=== PATIENT | male | born 1980 | race Hispanic/Latino ===

== ENCOUNTER → 2017-09-06 | Outpatient (CLI) | payer OTHER ==
--- NOTE | 2017-09-06 14:18 | REP ---
CT RIGHT ELBOW: CT right elbow performed without IV contrast in the axial plane. Sagittal and coronal reconstructed images are performed. There is no acute fracture or dislocation. Surrounding soft tissue structures appear unremarkable. There is no gross fluid collection or soft tissue nodule. There is mild spurring of the olecranon and coronoid process. The joint spaces appear unremarkable with no significant narrowing. No radiopaque joint body is seen. IMPRESSION: Mild olecranon and coronoid process spurring. Signed by Sreedhar Billingsley MD 09/09/2017 09:52 A
== END ==
LOC: M RAD 13:02
PROVIDERS: ATTEND Family Medicine
DX: M25.721 Osteophyte, right elbow (principal); M25.521 Pain in right elbow

== ENCOUNTER 2019-05-11 10:33 | Day surgery (SDC) | payer OTHER, MEDICAID ==
[~2019-05-11] VITALS: Ht 175.3 cm; Wt 100.7 kg
[~2019-05-11 10:33] MED LIST: BELS1TAB2 PO; CLON-383 PO; DEPA500T2 PO; DOXE150C PO; HYDR-3363 PO; HYDR-3719 PO; INSULANT SC; LANS15CA PO; MAGN400C3 PO; MAGN400T2 PO; MELA3TAB49 PO; METF500T13 PO; NS 1,000 ML IV ONE; PERCOCET PO; RIBO400T PO; VIIB40TA PO; VITA500045 PO
[2019-05-11] MEDS ORDERED: LIDOCAINE 2% INJ 100 MG/5 ML SDV (FOR ANES.) As Ordered ONE (11:37)
[2019-05-11] MEDS ORDERED: fentaNYL 100 MCG/2 ML INJECTION (J3010) As Ordered ONE (11:52)
[2019-05-11] MEDS ORDERED: PROPOFOL 500 MG/50 ML VIAL As Ordered ONE (11:59)
--- NOTE | 2019-05-11 12:42 | ROOR ---
Patient Name: Eusebio Renteria Procedure Date: 05/11/2019 12:23 PM Date of : 1980 Age: 38 [facility]: [facility] Gender: Male Note Status: Finalized Procedure: Upper Endoscopy + Biopsies Indications: Heartburn, Diarrhea Providers: Kvng Pabon MD Referring MD: [facility], Admin. Requesting Provider: Medicines: Monitored Anesthesia Care Complications: No immediate complications. Procedure: Pre-Anesthesia Assessment: - The heart rate, respiratory rate, oxygen saturations, blood pressure, adequacy of pulmonary ventilation, and response to care were monitored throughout the procedure. The Endoscope was introduced through the mouth, and advanced to the second part of duodenum. The upper GI endoscopy was accomplished without difficulty. The patient tolerated the procedure well. Findings: The Z-line was variable and was found 40 cm from the incisors. Multiple biopsies were obtained with cold forceps for evaluation to rule out Real's Esophagus randomly at the gastroesophageal junction. A small hiatal hernia was present. No other significant abnormalities were identified in a careful examination of the stomach. The exam of the duodenum was otherwise normal. Multiple biopsies were obtained with cold forceps for evaluation of celiac disease randomly in the first portion of the duodenum. The exam was otherwise without abnormality. Impression: - Z-line variable, 40 cm from the incisors. - Small hiatal hernia. - The examination was otherwise normal. - Multiple biopsies were obtained at the gastroesophageal junction. - Multiple biopsies were obtained in the first portion of the duodenum. - The examination was otherwise normal. Recommendation: - Patient has a contact number available for emergencies. The signs and symptoms of potential delayed complications were discussed with the patient. Return to normal activities tomorrow. Written discharge instructions were provided to the patient. - High fiber diet. - Discharge patient to home. - Continue present medications. - Await pathology results. - Telephone GI clinic for pathology results in 1 week. - Return to referring physician. - The findings and recommendations were discussed with the patient's family. Kvng Pabon MD Kvng Pabon MD 05/11/2019 12:42:01 PM Electronically signed by Kvng Pabon MD Number of Addenda: 0 Note Initiated On: 05/11/2019 12:23 PM Estimated Blood Loss: Estimated blood loss: none.
[2019-05-11] MEDS ORDERED: PROPOFOL 200 MG/20 ML VIAL As Ordered ONE (12:44)
--- NOTE | 2019-05-11 13:02 | ROOR ---
Patient Name: Eusebio Renteria Procedure Date: 05/11/2019 12:24 PM Date of : 1980 Age: 38 Room: [facility] Gender: Male Note Status: Finalized Procedure: Total Colonoscopy to Cecum + Ileoscopy + Bx. Indications: Clinically significant diarrhea of unexplained origin Providers: Kvng Pabon MD Referring MD: [facility] John [facility]ERT[facility], Admin. Requesting Provider: Medicines: Monitored Anesthesia Care Complications: No immediate complications. Procedure: Pre-Anesthesia Assessment: - The heart rate, respiratory rate, oxygen saturations, blood pressure, adequacy of pulmonary ventilation, and response to care were monitored throughout the procedure. The Colonoscope was introduced through the anus and advanced to the cecum, identified by appendiceal orifice and ileocecal valve. The colonoscopy was performed without difficulty. The patient tolerated the procedure well. The quality of the bowel preparation was excellent. Findings: The perianal and digital rectal examinations were normal. Non-bleeding internal hemorrhoids were found during retroflexion. The hemorrhoids were small and Grade I (internal hemorrhoids that do not prolapse). No other significant abnormalities were identified in a careful examination of the remainder of the colon. The terminal ileum appeared normal. Multiple biopsies were obtained with cold forceps for histology in the terminal ileum. Biopsies for histology were taken with a cold forceps from the ascending colon, transverse colon and sigmoid colon for evaluation of microscopic colitis. The exam was otherwise without abnormality. Impression: - Non-bleeding internal hemorrhoids. - The examined portion of the ileum was normal. - The examination was otherwise normal. - Biopsies performed in the terminal ileum. - Biopsies were taken with a cold forceps from the ascending colon, transverse colon and sigmoid colon for evaluation of microscopic colitis. - The exam was otherwise normal to the cecum. Recommendation: - Patient has a contact number available for emergencies. The signs and symptoms of potential delayed complications were discussed with the patient. Return to normal activities tomorrow. Written discharge instructions were provided to the patient. - High fiber diet. - Discharge patient to home. - Continue present medications. - Await pathology results. - Telephone GI clinic for pathology results in 1 week. - Repeat colonoscopy in 10 years for screening purposes. - Return to referring physician. - The findings and recommendations were discussed with the patient's family. Kvng aPbon MD Kvng Pabon MD 05/11/2019 1:02:09 PM Electronically signed by Kvng Pabon MD Number of Addenda: 0 Note Initiated On: 05/11/2019 12:24 PM Estimated Blood Loss: Estimated blood loss: none.
[2019-05-11 13:20] VITALS: BP 128/76
== END 2019-05-11 13:35 | disposition home or self-care (01) ==
LOC: M OPP 10:33
PROVIDERS: ATTEND Internal Medicine Gastroenterology
DX: K64.0 First degree hemorrhoids (principal); K22.8 Other specified diseases of esophagus; K44.9 Diaphragmatic hernia without obstruction or gangrene; R12 Heartburn; R19.7 Diarrhea, unspecified
CPT/HCPCS: 43239; 45380; 88305; J3010

== ENCOUNTER 2021-07-16 17:19 | Inpatient (IN) | payer OTHER, MEDICAID ==
[~2021-07-16] VITALS: Ht 175.3 cm; Wt 100.2 kg
[~2021-07-16 17:19] MED LIST changes: -NS 1,000 ML IV ONE
[2021-07-16] MEDS ORDERED: methylPREDNISolone 125MG 2ML VIAL IV ONE (17:50)
[2021-07-16] MEDS ORDERED: VERA40TA PO (17:53)
[2021-07-16] MEDS ORDERED: AZIT-12 (17:53)
[2021-07-16] MEDS ORDERED: BENZ-18 PO (17:53)
[2021-07-16] MEDS ORDERED: PRAZ2CAP PO (17:53)
[2021-07-16] MEDS ORDERED: IBUP-1114 PO (17:53)
[2021-07-16] MEDS: COMBIVENT RESPIMAT 100-20MCG INHALER 4GM INH SCH ×3 (18:10→23:05)
[2021-07-16 18:16] LABS: HEMATOCRIT 41.3 % (42.0-52.0); HEMOGLOBIN 13.9 g/dl (13.5-17.5); MEAN CORPUSCULAR HEMOGLOBIN 26.5 pg (27.0-33.0); MEAN CORPUSCULAR HGB CONC 33.7 g/dl (32.0-36.5); MEAN CORPUSCULAR VOLUME 78.7 fl (80.0-96.0); PLATELET COUNT, AUTOMATED 313 10^3/uL (150-450); RED BLOOD COUNT 5.25 10^6/uL (4.30-6.10); WHITE BLOOD COUNT 6.2 10^3/uL (4.0-10.0)
[2021-07-16] MEDS ORDERED: ACETAMINOPHEN 325 MG TAB PO ONE (18:25)
--- NOTE | 2021-07-16 18:29 | REP ---
INDICATION: Coronavirus workup COMPARISON: 06/25/2018 TECHNIQUE: Portable AP view of the chest FINDINGS: Predominantly perihilar and mid to lower lobe scattered infiltrates consistent with pneumonia and COVID-19 pulmonary disease. No effusion. No pneumothorax. Mediastinum and cardiac silhouette normal. Skeletal structures intact. IMPRESSION: Infiltrates compatible with multifocal pneumonia and COVID-19 pulmonary disease. <Electronically signed by Daquan Meraz > 07/16/21 [id number]
[2021-07-16] MEDS ORDERED: ESOM20CA25 PO (18:30)
[2021-07-16] MEDS ORDERED: HYDR-4571 PO (18:30)
[2021-07-16] MEDS ORDERED: METF-838 PO (18:30)
[2021-07-16] MEDS ORDERED: MORP-69 PO (18:30)
[2021-07-16] MEDS ORDERED: PIOG1TAB37 PO (18:30)
[2021-07-16] MEDS ORDERED: PRAV20TA2 PO (18:30)
[2021-07-16] MEDS ORDERED: B-2100TA PO (18:30)
[2021-07-16] MEDS ORDERED: CYCL5TAB PO (18:30)
[2021-07-16] MEDS ORDERED: ALOG25TA PO (18:30)
[2021-07-16] MEDS ORDERED: HYDR50TA70 PO (18:30)
[2021-07-16 18:31] LABS: INR 1.11; PROTHROMBIN TIME 14.7 SECONDS (12.7-14.5)
[2021-07-16 18:32] LABS: PARTIAL THROMBOPLASTIN TIME 35.9 SECONDS (25.9-37.0)
[2021-07-16 18:35] LABS: D-DIMER QUANT 863.82 ng/ml (<500)
[2021-07-16 18:47] LABS: ALBUMIN 2.8 GM/DL (3.2-5.2); ALT/SGPT 33 U/L (12-78); BILIRUBIN,TOTAL 0.9 MG/DL (0.2-1.0); BLOOD UREA NITROGEN 11 MG/DL (7-18); CALCIUM LEVEL 8.7 MG/DL (8.5-10.1); CARBON DIOXIDE LEVEL 23 MEQ/L (21-32); CHLORIDE LEVEL 95 MEQ/L (98-107); CK-MB VALUE MASS < 1.0 NG/ML (<3.6); CPK CREATINE PHOSPHOKINASE 102 U/L (39-308); CREATININE FOR GFR 0.98 MG/DL (0.70-1.30); FERRITIN 974 NG/ML (26-388); GLOMERULAR FILTRATION RATE > 60.0 (>60); GLUCOSE, FASTING 261 MG/DL (70-100); LDH LACTATE DEHYDROGENASE 392 U/L (87-241); MAGNESIUM LEVEL 2.3 MG/DL (1.8-2.4); MB/CK RELATIVE INDEX 0.98 (< OR =4); POTASSIUM SERUM 3.3 MEQ/L (3.5-5.1); SODIUM LEVEL 128 MEQ/L (136-145); TOTAL PROTEIN 8.6 GM/DL (6.4-8.2); TROPONIN I < 0.02 NG/ML (< 0.10)
[2021-07-16 18:52] LABS: LYMPHOCYTES 13 % (16-44); MONOCYTES 7 % (0-5); NEUTROPHILS 75 % (28-66)
[2021-07-16 18:54] LABS: MICROCYTOSIS 1+; PLATELET ESTIMATE NORMAL (NORMAL)
[2021-07-16] MEDS ORDERED: ERGO500029 PO (18:56)
[2021-07-16] MEDS ORDERED: BELS1TAB PO (18:56)
[2021-07-16] MEDS ORDERED: IBUP-1720 PO (18:56)
[2021-07-16] MEDS ORDERED: HOME MED LIST COMPLETE! XX SCH (19:00)
[2021-07-16] MEDS ORDERED: ISOVUE-370 76% 100ML VIAL As Ordered ONE ×2 (19:28→19:51)
--- NOTE | 2021-07-16 19:31 | ECGEPIP ---
[facility] - ED Test Date: 2021-07-16 Pat Name: CARITO MANLEY Department: Room: - Gender: Male Fall Intern: EVER : 1980 Requested By: Kannan Jiménez Order Number: [id number] Reading MD: Kannan Jiménez Measurements Intervals [place] Rate: 106 P: 34 NV: 152 QRS: 36 QRSD: 76 T: 46 QT: 334 QTc: 443 Interpretive Statements Sinus tachycardia Nonspecific ST T wave changes Baseline artifact may affect reading cw 06/25/[address] T wave changes Electronically Signed on 07-16-2021 19:31:22 EDT by Kannan Jiménez
--- NOTE | 2021-07-16 20:42 | REPVR ---
PROCEDURE INFORMATION: Exam: CTA Chest With Contrast Exam date and time: 07/16/2021 7:44 PM Age: 41 years old Clinical indication: Patient is COVID positive, R/O PE. Patient's IV blew without infiltrate and an unknown amount of contrast was injected and the patient was re-injected with 75 cc of Isovue 370. Creatinine = 0.98. TECHNIQUE: Imaging protocol: Computed tomographic angiography of the chest with contrast. 3D rendering (Not supervised by radiologist): MIP and/or 3D reconstructed images were created by the technologist. Radiation optimization: All CT scans at this facility use at least one of these dose optimization techniques: automated exposure control; mA and/or kV adjustment per patient size (includes targeted exams where dose is matched to clinical indication); or iterative reconstruction. Contrast material: ISOVUE 370; Contrast volume: 75 ml; Contrast route: INTRAVENOUS (IV); COMPARISON: CR PORTABLE CHEST X-RAY 07/16/2021 6:14 PM FINDINGS: Tubes, catheters and devices: There is a neurostimulator device in place with leads terminating in the posterior epidural space at the T6-T7 level. Pulmonary arteries: No pulmonary embolism. Aorta: The thoracic aorta is intact and patent. There is no thoracic aortic aneurysm, pseudoaneurysm, penetrating atherosclerotic ulcer, intramural hematoma, or dissection. Great vessels off aortic arch: The brachiocephalic artery, imaged proximal portions of the common carotid arteries, imaged proximal portions of the vertebral arteries, and subclavian arteries are intact. No stenosis or occlusion of these vessels is noted. Trachea: Normal. Bronchial tree: Normal. Lungs: There are ground-glass opacities in a predominantly peripheral distribution in both lungs with areas of intralobular septal thickening ("crazy-paving"?) and superimposed consolidation. Pleural spaces: Unremarkable. No pneumothorax. No pleural effusion. Heart: No cardiomegaly or pericardial effusion. The ratio of the diameter of the right ventricle to the diameter of the left ventricle measures less than 1, which is within normal limits and there is no CT evidence for a right ventricular strain. Mediastinal space: No mediastinal mass, fluid collection, or pneumomediastinum. Lymph nodes: There are subcentimeter mediastinal lymph nodes. However, no abnormally enlarged lymph nodes measuring greater than 1 cm in short axis are noted. Spleen: Normal. No splenomegaly is noted. Adrenal glands: Normal. No adrenal mass is noted. Bones/joints: There is no fracture or dislocation. No suspicious osteolytic or osteoblastic lesion. There are endplate spurs in the thoracic spine. Soft tissues: There is mild right gynecomastia. IMPRESSION: 1. No pulmonary embolism. 2. Ground-glass opacities in a predominantly peripheral distribution in both lungs with areas of intralobular septal thickening ("crazy-paving"?) and superimposed consolidation, which are findings in keeping with the patient's history of COVID positive pneumonia. Electronically signed by: Adolph Vences On 07/16/2021 20:41:57 PM
[2021-07-16] MEDS: PRAVASTATIN 10 MG TAB PO SCH (21:00)
[2021-07-16] MEDS: MORPHINE 15 MG SA TAB PO SCH (21:00)
[2021-07-16] MEDS: PRAZOSIN 1 MG CAP PO SCH (21:00)
[2021-07-16] MEDS ORDERED: NORCO, ANEXSIA 5/325MG TABLET (HYDROcodone/ACETAMINOPHEN) PO PRN (21:05)
[2021-07-16] MEDS ORDERED: GLUCAGON INJ 1MG VIAL SC PRN (21:05)
[2021-07-16] MEDS ORDERED: CYCLOBENZAPRINE 5MG TABLET PO PRN (21:05)
[2021-07-16] MEDS ORDERED: DEXTROSE 50% 50 ML SYRINGE IV PRN (21:05)
[2021-07-16] MEDS ORDERED: hydrOXYzine 50 MG TAB PO PRN (21:05)
[2021-07-16] MEDS ORDERED: NS 1,000 ML IV SCH (21:05)
[2021-07-16] MEDS ORDERED: BENZONATATE 100 MG CAP PO PRN (21:05)
[2021-07-16] MEDS ORDERED: GLUCOSE 4GM CHEW TABLET PO PRN (21:05)
--- NOTE | 2021-07-16 21:05 | HPEPDOC ---
[facility] Medical History & Physical Date of Admission Jul 16, 2021 Date of Service: Jul 16, 2021 History and Physical CHIEF COMPLAINT: Shortness of breath HISTORY OF PRESENT ILLNESS: 41-year-old male history of insulin-dependent diabetes, presents to the emergency department due to shortness of breath he's been measuring his oxygen saturation at home found himself to be 85% on room air. Patient had cold-like symptoms that started on July 06 symptoms have persisted and include muscle pains, headache, loss of taste and smell, cough with productive white phlegm, increased fatigue, fevers and chills, night sweats, he was diagnosed with Covid 19 on July 09 and the symptoms have persisted since then however over the past 3 days he also started developing some mild shortness of breath which was new. Patient tells me that his 2 kids are also Covid positive at home. He tells me he is not vaccinated. CT angiogram chest to rule out PE was ordered in the ED and is still pending. On review of systems patient denies any chest pain or palpitations or nausea or vomiting tells me is feeling better now shortness of breath has improved. Patient will be admitted to medical service for further medical workup and management. 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 REVIEW OF SYSTEMS: 10 point review of systems complete all negative otherwise stated in HPI HOME MEDICATIONS: Please see below. PHYSICAL EXAMINATION: Constitutional: Awake and alert, in no apparent distress ENT: Sclera are clear. Mucosa is moist. Respiratory: Lungs diminished breath sounds bilaterally. No respiratory distress. No use of accessory muscles. Saturating at 95% on 4 L. Able to speak in full sentences without appearing short of breath during exam and history taking. Cardiovascular: RRR S1 and S2 are normal, no murmur Gastrointestinal: Abdomen is soft, non distended, non tender, BS present. Musculoskeletal: No lower extremity edema. Neurologic: No focal neurological deficit. Mental Status: A&O x3, normal affect Skin: Warm, dry LABORATORY DATA: See below. IMAGING: See chart MICROBIOLOGY: Please see below. ASSESSMENT/PLAN # Hypoxic respiratory failure 2/2 Covid 19 infection with possible superimposed bacterial pneumonia: - Has multiple risk factors for poor outcomes with Covid 19 infection such as obesity, and diabetes. - Initial inflammatory markers elevated. Trend inflammatory markers. - IV Decadron daily. Day 10 of symptoms, will start rimdasivir. Lovenox. O2 target 90% or better. PT/OT. - Started IV ceftriaxone and azithromycin. Follow blood cultures. follow-up pro- calcitonin if negative can consider DC Abx. # DM: ISS. Frequent Accu-Cheks. Hypoglycemic precautions. levemir qhs. # Hypokalemia: Replace. Monitor. # Hyponatremia: trial IVF with NS. # Obesity: complicates care. BMI 34. # DVT prophylaxis: Lovenox COVID prophylactic dose A Yousef Hospitalist Vital Signs Vital Signs Date Time Temp Pulse Resp B/P (MAP) Pulse Ox O2 Delivery O2 Flow Rate FiO2 07/16/21 18:45 20 138/91 (107) 07/16/21 18:34 102 95 Nasal Cannula 4.0 07/16/21 17:48 100.6 Laboratory Data Labs 24H Laboratory Tests 2 07/16/21 17:52: Neutrophils (%) (Auto) , Nucleated Red Blood Cells % (auto) 0.0, Neutrophils 75H, Band Neutrophils 5, Lymphocytes (Manual) 13L, Monocytes (Manual) 7H, Polychromasia , Microcytosis 1+, Platelet Estimate NORMAL, Prothrombin Time 14.7H, Prothromb Time International Ratio 1.11, Activated Partial Thromboplast Time 35.9, Fibrinogen 852H, D-Dimer, Quantitative 863.82H, Anion Gap 10, Glomerular Filtration Rate > 60.0, Lactic Acid Level 1.6, Calcium Level 8.7, Magnesium Level 2.3, Ferritin 974H, Total Bilirubin 0.9, Aspartate Amino Transf (AST/SGOT) 30, Alanine Aminotransferase (ALT/SGPT) 33, Alkaline Phosphatase 76, Lactate Dehydrogenase 392H, Total Creatine Kinase 102, Creatine Kinase MB < 1.0, Creatine Kinase MB Relative Index 0.98, Troponin I < 0.02, C-Reactive Protein, Quantitative 28.50H, Total Protein 8.6H, Albumin 2.8L, Albumin/Globulin Ratio 0.5 07/16/21 18:04: POC pH (Misc Panel) 7.421, POC Base Excess (Misc Panel) -2.0, POC Saturated Percent O2 (Misc) 96, POC pO2 (Misc Panel) 76.0L, POC pCO2 (Misc Panel) 34.9L, POC HCO3 (Misc Panel) 22.7, POC Total CO2 (Misc Panel) 24.0 CBC/BMP Laboratory Tests 07/16/21 17:52 Microbiology Microbiology 07/16/21 Blood Culture, Received Pending Home Medications Scheduled Alogliptin Benzoate (Alogliptin) 25 Mg Tablet, 25 MG PO DAILY Ergocalciferol (Vitamin D2) (Vitamin D2) 50,000 Units Cap, 50,000 UNITS PO 1XWK WEDNESDAYS Esomeprazole Magnesium (Esomeprazole Magnesium Dr) 20 Mg Capsule.dr, 20 MG PO BID Insulin Glargine (Lantus) 1 Units/0.01 Ml Susp, 30 UNITS SC QHS Magnesium Oxide (Magnesium Oxide) 400 Mg Tablet, 400 MG PO DAILY Melatonin (Melatonin) 3 Mg Tab.rapdis, 3 MG PO QHS Metformin HCl (Metformin HCl ER) 500 Mg Tab.er.24h, 2,000 MG PO QHS Morphine Sulfate (Morphine Sulfate ER) 15 Mg Tablet.er, 15 MG PO BID Pioglitazone HCl (Pioglitazone HCl) 30 Mg Tablet, 30 MG PO DAILY Pravastatin Sodium (Pravastatin Sodium) 20 Mg Tablet, 10 MG PO QHS Prazosin Hcl (Prazosin HCl) 2 Mg Capsule, 4 MG PO QHS Riboflavin (Vitamin B2) (Vitamin B-2) 100 Mg Tablet, 400 MG PO DAILY Verapamil HCl (Verapamil HCl) 40 Mg Tablet, 40 MG PO TID Vilazodone HCl (Viibryd) 40 Mg Tablet, 40 MG PO QHS Scheduled PRN Benzonatate (Benzonatate) 100 Mg Capsule, 100 MG PO Q4H PRN for COUGH Cyclobenzaprine HCl (Cyclobenzaprine HCl) 5 Mg Tablet, 5 MG PO TID PRN for MUSCLE SPASMS Hydrocodone/Acetaminophen (Hydrocodone-Acetamin 5-325 mg) 1 Each Tablet, 1 TAB PO Q4H PRN for PAIN LEVEL 4-7 Hydroxyzine HCl (Hydroxyzine HCl) 50 Mg Tablet, 50 MG PO Q6H PRN for ANXIETY Ibuprofen (Ibuprofen) 200 Mg Tablet, 400 MG PO Q8H PRN for PAIN LEVEL 1-5 Suvorexant (Belsomra) 5 Mg Tablet, 15 MG PO QHS PRN for SLEEP Allergies Coded Allergies: morphine (Verified Adverse Reaction, Intermediate, vomiting, 05/04/19) ziprasidone (Verified Adverse Reaction, Intermediate, extreme fatigue, 05/04/19) YOVANA MONDRAGON MD Jul 16, 2021 19:59
[2021-07-16] MEDS ORDERED: POTASSIUM CHLORIDE 10 MEQ SR TABLET PO ONE (22:00)
[2021-07-16 22:30] VITALS: BP 121/83
[2021-07-16] MEDS ORDERED: REMDESIVIR 200 MG in NS 250 ML IV ONE (23:00)
[2021-07-16] MEDS: ENOXAPARIN 60MG/0.6ML SYRINGE (J1650 PER 10MG) SC SCH (23:03)
[2021-07-16] MEDS: cefTRIAXone SOD 1 GM in D5W MINI-BAG PLUS 50 ML IV SCH (23:03)
[2021-07-16] MEDS: VERAPAMIL 40 MG TAB PO SCH (23:04)
[2021-07-16] MEDS: AZITHROMYCIN INJ 500 MG, VIAL MATE ADAPTER 1 EACH in NS 250 ML IV SCH (23:51)
[2021-07-16] MEDS: LEVEMIR (INSULIN DETEMIR) 1 UNITS/0.01ML SC SCH (23:51)
[2021-07-17] VITALS (15 sets, daily range): BP systolic 116–135; BP diastolic 72–88; O2SAT 90–92
[2021-07-17] MEDS ORDERED: SODIUM CHLORIDE 0.9% INJ 10 ML SYR IV ONE (01:00)
[2021-07-17] MEDS: MORPHINE 15 MG SA TAB PO SCH ×2 (08:20→20:24)
[2021-07-17] MEDS: MAGNESIUM OXIDE 400MG TAB (MAG-OX) PO SCH (08:21)
[2021-07-17] MEDS: dexameTHASONE 4 MG/ML 1ML VIAL (J1100 PER 1MG) IV SCH (08:22)
[2021-07-17] MEDS: VERAPAMIL 40 MG TAB PO SCH ×3 (08:22→21:00)
[2021-07-17] MEDS: ENOXAPARIN 60MG/0.6ML SYRINGE (J1650 PER 10MG) SC SCH ×2 (08:23→20:25)
[2021-07-17] MEDS: HumaLOG INSULIN (NovoLOG) PER UNIT SC SCH ×4 (08:35→20:25)
[2021-07-17 10:48] LABS: BASO % 0.3 % (0.0-1.0); HEMATOCRIT 38.1 % (42.0-52.0); LYMPH # 0.6 10^3/uL (1.5-5.0); LYMPH % 9.4 % (24.0-44.0); MEAN CORPUSCULAR HEMOGLOBIN 26.6 pg (27.0-33.0); MEAN CORPUSCULAR HGB CONC 34.1 g/dl (32.0-36.5); MEAN CORPUSCULAR VOLUME 77.9 fl (80.0-96.0); MONO # 0.2 10^3/uL (0.0-0.8); MONO % 3.6 % (2.0-8.0); NEUTROPHILS # 5.1 10^3/uL (1.5-8.5); NEUTROPHILS % 86.2 % (36.0-66.0); PLATELET COUNT, AUTOMATED 333 10^3/uL (150-450); RED BLOOD COUNT 4.89 10^6/uL (4.30-6.10); WHITE BLOOD COUNT 5.9 10^3/uL (4.0-10.0)
[2021-07-17 11:30] LABS: OSMOLALITY SERUM 287 MOSM/KG (275-295)
[2021-07-17 11:44] LABS: BLOOD UREA NITROGEN 15 MG/DL (7-18); CALCIUM LEVEL 8.3 MG/DL (8.5-10.1); CARBON DIOXIDE LEVEL 23 MEQ/L (21-32); CHLORIDE LEVEL 100 MEQ/L (98-107); CREATININE FOR GFR 0.73 MG/DL (0.70-1.30); FREE T4 1.81 NG/DL (0.76-1.46); GLOMERULAR FILTRATION RATE > 60.0 (>60); GLUCOSE, FASTING 241 MG/DL (70-100); MAGNESIUM LEVEL 2.4 MG/DL (1.8-2.4); POTASSIUM SERUM 4.4 MEQ/L (3.5-5.1); SODIUM LEVEL 134 MEQ/L (136-145); TOTAL T3 39.3 NG/DL (60.0-181.0)
--- NOTE | 2021-07-17 14:59 | IPNPDOC ---
Text Note Date of Service The patient was seen on 07/17/21. NOTE Subjective: Patient is a 41 yo male admitted overnight for worsening respiratory status from COVID pneumonia diagnosed on 07/09. He is seen this morning at bedside in the ICU due to lack of staffing in the COVID unit. He states he feels overall better compared to yesterday. He continues to have fatigue, myalgias, and a cough productive of white sputum, but otherwise denies any chest pain, palpitations, now denies SOB, denies nausea, vomiting, or abdominal pain. Objective: Vitals: See below General: Mildly diaphoretic appearing male who appears stated age laying in bed in no acute distress HEENT: NC, AT. EOMI, no scleral icterus. No pharyngeal erythema, mucous membrane s moist. Neck: No lymphadenopathy or JVD CV: RRR, Normal S1 and S2. No murmurs, gallops, or rubs. Resp: CTAB with diminished breath sounds. No wheezes, crackles. Some rhonchi present throughout lung haro. Abdomen: Bowel sounds present. Soft, NT, ND. Obese abdomen. Extremities: No swelling or edema. Vascular: Capillary refill <2 seconds, distal pulses intact Psych: A/Ox3 normal mood and anxious affect Assessment/Plan: #. Acute hypoxic respiratory failure likely secondary to COVID-19 pneumonia -Reported no vaccination -COVID+ on 07/09, day 9 of illness. Currently on 6 L nasal cannula -Remdesivir started 07/16 with possible stop date of 07/21 -IV Decadron started 07/16, with plans for 10 day course. -Incentive spirometry/acapella/awake pronation encouraged #. Possible superimposed pneumonia -CTA chest showing consolidations -07/16 Rocephin and azithromycin started - Pro stephenie, urine legionella, Mycoplasma, Urine strep pending #. Hyponatremia -From history this seems 2/2 poor PO intake. -Na now 134 after IVF overnight #.T2DM -Sliding scale insulin -Levemir 30 U QHS #. BERTO -Attempting to get home settings, he also has a 5L O2 bleed at night #. Hx of chronic back pain -Continue home Ms Contin 15 mg BID #. PTSD -Continue home Prazosin -If anxiety worsens may consider re-adding home atarax or vilazodone #. HTN -Continue home Verapamil #.Dyslipidemia -Continue home pravastatin #. Obesity Complicating care. BMI 34 #. DVT prophylaxis: prophylactic 0.5mg/kg dose CODE STATUS: Full code Disposition: Pending clinical improvement VS,Terabone, I+O VS, Terabone, I+O Laboratory Tests 07/16/21 17:52 07/17/21 10:32 Vital Signs Date Time Temp Pulse Resp B/P (MAP) Pulse Ox O2 Delivery O2 Flow Rate FiO2 07/17/21 08:22 104 119/79 07/17/21 08:20 21 07/17/21 08:14 97.1 88 Nasal Cannula 4.0 I&O- Last 24 Hours up to 6 AM 07/17/21 05:59 Intake Total 1735 ml Output Total 500 ml Balance 1235 ml GME ATTESTATION GME ATTESTATION My faculty preceptor for this patient encounter was physically present during the encounter and was fully available. All aspects of the patient interview, examination, medical decision making process, and medical care plan development were reviewed and approved by the faculty preceptor. The faculty preceptor is aware and concurs with the plan as stated in the body of this note and will attest to such by his/her cosignature. ATTENDING NOTE I, Shanna Leonard, have independently examined this patient and performed my own physical exam, as well as reviewed the documentation and edited where necessary. I have discussed in detail with the resident / student the findings and plan of treatment as documented by the resident / student and edited their note. I agree with their findings and treatment plan and have edited their documentation. I will continue to follow the patient during this hospital stay. GRACE MULLER DO Jul 17, 2021 14:11 SHANNA LEONARD MD Jul 17, 2021 15:27
[2021-07-17] MEDS: PRAZOSIN 1 MG CAP PO SCH (20:23)
[2021-07-17] MEDS: PRAVASTATIN 10 MG TAB PO SCH (20:24)
[2021-07-17] MEDS: cefTRIAXone SOD 1 GM in D5W MINI-BAG PLUS 50 ML IV SCH (20:26)
[2021-07-17] MEDS: LEVEMIR (INSULIN DETEMIR) 1 UNITS/0.01ML SC SCH (21:17)
[2021-07-17] MEDS: AZITHROMYCIN INJ 500 MG, VIAL MATE ADAPTER 1 EACH in NS 250 ML IV SCH (21:18)
[2021-07-17] MEDS: REMDESIVIR 100 MG in NS 250 ML IV SCH (22:27)
[2021-07-17] MEDS: SODIUM CHLORIDE 0.9% INJ 10 ML SYR IV SCH (23:33)
[2021-07-18] VITALS (12 sets, daily range): BP systolic 110–132; BP diastolic 62–88; O2SAT 90–93
[2021-07-18 04:51] LABS: HEMATOCRIT 34.6 % (42.0-52.0); HEMOGLOBIN 11.8 g/dl (13.5-17.5); MEAN CORPUSCULAR HEMOGLOBIN 26.7 pg (27.0-33.0); MEAN CORPUSCULAR HGB CONC 34.1 g/dl (32.0-36.5); MEAN CORPUSCULAR VOLUME 78.3 fl (80.0-96.0); PLATELET COUNT, AUTOMATED 347 10^3/uL (150-450); RED BLOOD COUNT 4.42 10^6/uL (4.30-6.10); WHITE BLOOD COUNT 3.8 10^3/uL (4.0-10.0)
[2021-07-18 05:01] LABS: INR 1.17; PROTHROMBIN TIME 15.3 SECONDS (12.7-14.5)
[2021-07-18 05:17] LABS: ATYPICAL LYMPH 2 % (0-5); LYMPHOCYTES 17 % (16-44); METAMYELOCYTES 1 % (0-0); MICROCYTOSIS 1+; MONOCYTES 7 % (0-5); NEUTROPHILS 73 % (28-66); PLATELET ESTIMATE NORMAL (NORMAL)
[2021-07-18 05:19] LABS: ALBUMIN 2.3 GM/DL (3.2-5.2); ALT/SGPT 47 U/L (12-78); BILIRUBIN,DIRECT 0.2 MG/DL (0.0-0.2); BILIRUBIN,TOTAL 0.4 MG/DL (0.2-1.0); BLOOD UREA NITROGEN 19 MG/DL (7-18); CALCIUM LEVEL 8.5 MG/DL (8.5-10.1); CARBON DIOXIDE LEVEL 24 MEQ/L (21-32); CHLORIDE LEVEL 101 MEQ/L (98-107); CPK CREATINE PHOSPHOKINASE 57 U/L (39-308); CREATININE FOR GFR 0.74 MG/DL (0.70-1.30); FERRITIN 1006 NG/ML (26-388); GLOMERULAR FILTRATION RATE > 60.0 (>60); GLUCOSE, FASTING 280 MG/DL (70-100); LDH LACTATE DEHYDROGENASE 347 U/L (87-241); MAGNESIUM LEVEL 2.4 MG/DL (1.8-2.4); NT-PRO BNP 24 PG/ML (<125); POTASSIUM SERUM 3.9 MEQ/L (3.5-5.1); SODIUM LEVEL 133 MEQ/L (136-145); TOTAL PROTEIN 7.2 GM/DL (6.4-8.2); TROPONIN I < 0.02 NG/ML (< 0.10)
[2021-07-18] MEDS: HumaLOG INSULIN (NovoLOG) PER UNIT SC SCH ×4 (08:15→20:50)
[2021-07-18] MEDS: MAGNESIUM OXIDE 400MG TAB (MAG-OX) PO SCH (08:52)
[2021-07-18] MEDS: MORPHINE 15 MG SA TAB PO SCH ×2 (08:53→20:49)
[2021-07-18] MEDS: dexameTHASONE 4 MG/ML 1ML VIAL (J1100 PER 1MG) IV SCH (08:54)
[2021-07-18] MEDS: ENOXAPARIN 60MG/0.6ML SYRINGE (J1650 PER 10MG) SC SCH ×2 (08:55→20:49)
[2021-07-18] MEDS: VERAPAMIL 40 MG TAB PO SCH ×3 (08:57→20:46)
[2021-07-18] MEDS ORDERED: DOCUSATE SODIUM 100MG CAPSULE PO PRN (09:20)
--- NOTE | 2021-07-18 13:44 | IPNPDOC ---
Text Note Date of Service The patient was seen on 07/18/21. NOTE Subjective: Patient is a 41 yo male admitted with respiratory failure from COVID pneumonia on 07/16. He is seen this morning at bedside in the ICU again. He was started on his home CPAP yesterday and kept that way overnight without issue. He has no complaints today outside of his ongoing cough productive of white phlegm and some chest pain that accompanies the cough. He also admits to fatigue and myalgias. He otherwise denies any fever, chills, chest pressure, palpitations, shortness of breath, nausea, vomiting, or abdominal pain. He has yet to have a bowel movement per nursing staff. Objective: Vitals: See below General: Laying supine in bed with CPAP applied to face in no acute distress HEENT: NC, AT. EOMI, no scleral icterus. Neck: No lymphadenopathy or JVD CV: RRR, Normal S1 and S2. No murmurs, gallops, or rubs. Resp: CTAB with diminished breath sounds. No wheezes, crackles. Some rhonchi and crackles present throughout lung haro. Abdomen: Bowel sounds present. Soft, NT, ND. Obese abdomen. Extremities: No swelling or edema. Vascular: Capillary refill <2 seconds, distal pulses intact Psych: A/Ox3 normal mood and anxious affect Assessment/Plan: #. Acute hypoxic respiratory failure likely secondary to COVID-19 pneumonia -Reported no vaccination -COVID+ on 07/09, day 10 of illness. Currently on home CPAP settings -Remdesivir started 07/16 with possible stop date of 07/21 -IV Decadron started 07/16, with plans for 10 day course. -Incentive spirometry/acapella/awake pronation encouraged #. Superimposed pneumonia - CTA chest showing consolidations - 07/16 Rocephin and azithromycin started for CAP and atypical coverage, may consider changing to doxy. - Pro-stephenie, urine legionella, Mycoplasma, Urine strep pending, sputum culture pending #. Hyponatremia -From history this seems 2/2 poor PO intake. -Still awaiting urine, serum osmolality, urine sodium, will continue to monitor, IVF have been stopped #.T2DM -Sliding scale insulin -Increasing long acting levemir to 50 U QHS -Consistent carb diet #. BERTO -Home settings are alternating CPAP pressures between 15-21 w/ 5L O2 bleed -Respiratory has recommended 17 cm H2) w/ bleed in for O2<88% QHS #. Hx of chronic back pain -Continue home Ms Contin 15 mg BID #. PTSD -Continue home Prazosin -If anxiety worsens may consider re-adding home atarax or vilazodone #. HTN -Continue home Verapamil #.Dyslipidemia -Continue home pravastatin #. Obesity Complicating care. BMI 34 #. DVT prophylaxis: prophylactic 0.5mg/kg dose CODE STATUS: Full code Disposition: Pending clinical improvement VS,Fishbone, I+O VS, Fishbone, I+O Laboratory Tests 07/18/21 04:40 Vital Signs Date Time Temp Pulse Resp B/P (MAP) Pulse Ox O2 Delivery O2 Flow Rate FiO2 07/18/21 12:00 91 NIPPV (BIPAP/CPAP) 10.0 07/18/21 12:00 98.0 80 28 116/75 (89) I&O- Last 24 Hours up to 6 AM 07/18/21 05:59 Intake Total 3845 ml Output Total 2475 ml Balance 1370 ml GME ATTESTATION GME ATTESTATION My faculty preceptor for this patient encounter was physically present during the encounter and was fully available. All aspects of the patient interview, examination, medical decision making process, and medical care plan development were reviewed and approved by the faculty preceptor. The faculty preceptor is aware and concurs with the plan as stated in the body of this note and will attest to such by his/her cosignature. ATTENDING NOTE Attending Attestation: I saw and evaluated the patient. I agree with the finding and the plan of care as documented in the residents note. GRACE MULLER DO Jul 18, 2021 13:44 FARIDEH LINCOLN MD Jul 19, 2021 06:16
[2021-07-18] MEDS: PRAVASTATIN 10 MG TAB PO SCH (20:48)
[2021-07-18] MEDS: PRAZOSIN 1 MG CAP PO SCH (20:48)
[2021-07-18] MEDS: cefTRIAXone SOD 1 GM in D5W MINI-BAG PLUS 50 ML IV SCH (20:49)
[2021-07-18] MEDS ORDERED: LEVEMIR (INSULIN DETEMIR) 1 UNITS/0.01ML SC SCH (21:00)
[2021-07-18] MEDS: AZITHROMYCIN INJ 500 MG, VIAL MATE ADAPTER 1 EACH in NS 250 ML IV SCH (21:44)
[2021-07-18] MEDS: REMDESIVIR 100 MG in NS 250 ML IV SCH (23:22)
[2021-07-19] VITALS (15 sets, daily range): BP systolic 100–129; BP diastolic 64–84; O2SAT 87–95
[2021-07-19] MEDS: SODIUM CHLORIDE 0.9% INJ 10 ML SYR IV SCH (00:51)
[2021-07-19 05:01] LABS: HEMATOCRIT 35.6 % (42.0-52.0); MEAN CORPUSCULAR HEMOGLOBIN 26.4 pg (27.0-33.0); MEAN CORPUSCULAR HGB CONC 33.7 g/dl (32.0-36.5); MEAN CORPUSCULAR VOLUME 78.4 fl (80.0-96.0); PLATELET COUNT, AUTOMATED 430 10^3/uL (150-450); RED BLOOD COUNT 4.54 10^6/uL (4.30-6.10); WHITE BLOOD COUNT 5.2 10^3/uL (4.0-10.0)
[2021-07-19 05:25] LABS: ALBUMIN 2.2 GM/DL (3.2-5.2); ALT/SGPT 50 U/L (12-78); BILIRUBIN,TOTAL 0.3 MG/DL (0.2-1.0); BLOOD UREA NITROGEN 20 MG/DL (7-18); CALCIUM LEVEL 8.6 MG/DL (8.5-10.1); CARBON DIOXIDE LEVEL 26 MEQ/L (21-32); CHLORIDE LEVEL 103 MEQ/L (98-107); CREATININE FOR GFR 0.73 MG/DL (0.70-1.30); GLOMERULAR FILTRATION RATE > 60.0 (>60); GLUCOSE, FASTING 259 MG/DL (70-100); POTASSIUM SERUM 4.1 MEQ/L (3.5-5.1); SODIUM LEVEL 134 MEQ/L (136-145); TOTAL PROTEIN 6.8 GM/DL (6.4-8.2)
[2021-07-19] MEDS: HumaLOG INSULIN (NovoLOG) PER UNIT SC SCH ×4 (06:59→20:38)
[2021-07-19] MEDS: ENOXAPARIN 60MG/0.6ML SYRINGE (J1650 PER 10MG) SC SCH ×2 (08:11→20:34)
[2021-07-19] MEDS: dexameTHASONE 4 MG/ML 1ML VIAL (J1100 PER 1MG) IV SCH (08:11)
[2021-07-19] MEDS: MAGNESIUM OXIDE 400MG TAB (MAG-OX) PO SCH (08:12)
[2021-07-19] MEDS: VERAPAMIL 40 MG TAB PO SCH (08:12)
[2021-07-19] MEDS: MORPHINE 15 MG SA TAB PO SCH ×2 (08:13→20:35)
[2021-07-19 09:27] LABS: ABG HCO3 24.2 MEQ/L (22.0-26.0); ABG PARTIAL PRESSURE CO2 33.8 mmHg (35.0-45.0); ABG PARTIAL PRESSURE O2 50.9 mmHg (75.0-100.0); ABG STANDARD HCO3 25.2 MEQ/L (22.0-26.0); ABG TOTAL CO2 25.2 MEQ/L (22.0-29.0); ABG pH (ARTERIAL) 7.472 UNITS (7.350-7.450)
[2021-07-19] MEDS ORDERED: dexameTHASONE 4 MG/ML 1ML VIAL (J1100 PER 1MG) IV ONE (10:45)
[2021-07-19] MEDS ORDERED: DOXYCYCLINE HYCLATE 100 MG in D5W MINI-BAG PLUS 100 ML IV SCH (11:00)
[2021-07-19] MEDS: BARICITINIB 2MG TABLET (OLUMIANT) FOR EUA PO SCH (11:17)
--- NOTE | 2021-07-19 13:42 | REP ---
INDICATION: hypoxia. COMPARISON: 07/16/2021. TECHNIQUE: Single portable AP view of the chest was performed. FINDINGS: Bilateral infiltrates are again present, unchanged on the right and mildly increased on the left. The heart and mediastinum are unchanged. Dorsal column stimulator leads are again noted. IMPRESSION: Stable right lung infiltrates. Mild increased left lung infiltrates. <Electronically signed by Sreedhar Billingsley > 07/19/21 [id number]
[2021-07-19 14:42] LABS: ABG BASE EXCESS -0.8 (-2.0-2.0); ABG HCO3 22.7 MEQ/L (22.0-26.0); ABG O2 SATURATION 96.8 % (95.0-99.0); ABG PARTIAL PRESSURE CO2 34.2 mmHg (35.0-45.0); ABG STANDARD HCO3 23.8 MEQ/L (22.0-26.0); ABG TOTAL CO2 23.8 MEQ/L (22.0-29.0)
--- NOTE | 2021-07-19 15:19 | IPNPDOC ---
Text Note Date of Service The patient was seen on 07/19/21. NOTE Subjective: Patient is seen this morning at bedside in the ICU. He has no new complaints to offer at this time, he denies any dyspnea, chest pain or pressure, abdominal pain, nausea, vomiting, difficulty urinating, he admits to constipation. He is tolerating a regular diet adequately and his appetite has improved. However, his oxygen demands are increasing and he is not maintaining well on his current CPAP settings of 17 even with the maximum 15% O2 Leak and keeps desaturating back down to the mid to low 80's. Objective: Vitals: See below General: Sitting upright in bed with CPAP applied to face in no acute distress HEENT: NC, AT. EOMI, no scleral icterus. mucous membranes moist. Neck: No lymphadenopathy or JVD CV: RRR, Normal S1 and S2. No murmurs, gallops, or rubs. Resp: CTAB with diminished breath sounds. Mild crackles at lung bases and rhonchi present throughout. Difficult to percuss with noise from CPAP machine. Abdomen: Bowel sounds present. Soft, NT, ND. Obese abdomen. Extremities: No swelling or edema. Vascular: Capillary refill <2 seconds, distal pulses intact Neurologic: CN 2-12 intact. Moving all 4 extremities, sensation intact in all 4 extremities. A/Ox4 Psych: Nnormal mood and affect Imagin07/16/2021 chest x-ray: "Impression: Infiltrates compatible with multifocal pneumonia and COVID-19 pulmonary disease" 07/16/2021 CT angiogram chest: "Impression: 1. No pulmonary embolism. 2. Ground glass opacities in a predominantly peripheral distribution in both lungs with areas of intralobular septal thickening ("crazy paving"?) And superimposed consolidation, which are findings in keeping with the patient's history of Covid positive pneumonia" 07/19/2021 chest x-ray: "Impression: Stable right lung infiltrates. Mild increased left lung infiltrates." Assessment/Plan: #. Acute hypoxic respiratory failure likely secondary to COVID-19 pneumonia -Worsened today, ABG showing 7.47/33.8/50.9. -Maxed out CPAP, vapotherm tried/failed. -Discussed case with Dr. Lowe who recommended Baricitinib w/ remdesivir, increased steroids, and Bipap pressure setting 20/16 @100% with TV goals of 450- 500. Failing this, COVID intubation team will need to be alerted. -COVID+ on 07/09, day 11 of illness. Unvaccinated. -Remdesivir started 07/16 will continue for 10 days, stop date 07/26 in conjunction w/ baricitinib -IV Decadron started 07/16, increasing to 12 mg IV daily, with plans for 10 day course. -Incentive spirometry/acapella/awake pronation encouraged #. Superimposed pneumonia - CTA chest showing consolidations - repeat chest x-ray showing worsened left lower lobe infiltrates and stable right lower lobe infiltrate - 07/16 Rocephin started for CAP, continuing -07/16 azithromycin started for atypical coverage, changing to doxycycline for same today - Pro-stephenie trending down -urine legionella, Mycoplasma, Urine strep pending, sputum culture pending #. Hyponatremia -Na levels stable at 134 -From history this seems 2/2 poor PO intake. -UA, urine sodium and urine osmolality and serum osmolality consistent with poor oral intake. #.T2DM -Sliding scale insulin -Changing Levemir to 35 units twice daily -Consistent carb diet #. BERTO -Home settings are alternating CPAP pressures between 15-21 w/ 5L O2 bleed -Respiratory has recommended 17 cm H2) w/ bleed in for O2<88% QHS #. Hx of chronic back pain -Continue home Ms Contin 15 mg BID #. PTSD -Continue home Prazosin -If anxiety worsens may consider re-adding home atarax or vilazodone #. HTN -Will hold for 24 hours, BP borderline soft and we may consider gentle diuresis given he is already +3 liters #.Dyslipidemia -Continue home pravastatin #. Obesity Complicating care. BMI 34 #. DVT prophylaxis: prophylactic 0.5mg/kg dose CODE STATUS: Was again clarified with patient in front of [employer] and RT. Patient wishes to remain FULL CODE. In the event he requires a trach and peg, he also wants that as well. Disposition: Pending clinical improvement VS,Fishbone, I+O VS, Fishbone, I+O Laboratory Tests 07/19/21 04:45 Vital Signs Date Time Temp Pulse Resp B/P (MAP) Pulse Ox O2 Delivery O2 Flow Rate FiO2 07/19/21 13:15 30 96 NIPPV (BIPAP/CPAP) 90 07/19/21 13:06 68 118/78 (91) 07/19/21 13:00 40.0 07/19/21 08:00 97.2 I&O- Last 24 Hours up to 6 AM 07/19/21 05:59 Intake Total 1805 ml Output Total 1850 ml Balance -45 ml GME ATTESTATION GME ATTESTATION My faculty preceptor for this patient encounter was physically present during the encounter and was fully available. All aspects of the patient interview, examination, medical decision making process, and medical care plan development were reviewed and approved by the faculty preceptor. The faculty preceptor is aware and concurs with the plan as stated in the body of this note and will attest to such by his/her cosignature. ATTENDING NOTE Attending Attestation: I saw and evaluated the patient. I agree with the finding and the plan of care as documented in the residents note. Discussed with pulmonary, assistance greatly appreciated. GRACE MULLER DO Jul 19, 2021 15:19 FARIDEH LINCOLN MD Jul 20, 2021 06:36
[2021-07-19] MEDS: cefTRIAXone SOD 1 GM in D5W MINI-BAG PLUS 50 ML IV SCH (20:34)
[2021-07-19] MEDS: PRAVASTATIN 10 MG TAB PO SCH (20:35)
[2021-07-19] MEDS: PRAZOSIN 1 MG CAP PO SCH (20:36)
[2021-07-19] MEDS: LEVEMIR (INSULIN DETEMIR) 1 UNITS/0.01ML SC SCH (20:39)
[2021-07-19] MEDS: DOXYCYCLINE HYCLATE 100 MG in D5W MINI-BAG PLUS 100 ML IV SCH (22:59)
[2021-07-20] VITALS (9 sets, daily range): BP systolic 104–135; BP diastolic 68–88
[2021-07-20] MEDS: SODIUM CHLORIDE 0.9% INJ 10 ML SYR IV SCH (01:00)
[2021-07-20 05:00] LABS: HEMATOCRIT 36.2 % (42.0-52.0); HEMOGLOBIN 12.5 g/dl (13.5-17.5); MEAN CORPUSCULAR HGB CONC 34.5 g/dl (32.0-36.5); MEAN CORPUSCULAR VOLUME 78.2 fl (80.0-96.0); PLATELET COUNT, AUTOMATED 452 10^3/uL (150-450); RED BLOOD COUNT 4.63 10^6/uL (4.30-6.10); WHITE BLOOD COUNT 6.4 10^3/uL (4.0-10.0)
[2021-07-20 05:10] LABS: INR 1.12; PROTHROMBIN TIME 14.8 SECONDS (12.7-14.5)
[2021-07-20 05:11] LABS: PARTIAL THROMBOPLASTIN TIME 29.2 SECONDS (25.9-37.0)
[2021-07-20 05:22] LABS: ALBUMIN 2.4 GM/DL (3.2-5.2); ALT/SGPT 65 U/L (12-78); BILIRUBIN,TOTAL 0.3 MG/DL (0.2-1.0); BLOOD UREA NITROGEN 21 MG/DL (7-18); CALCIUM LEVEL 8.6 MG/DL (8.5-10.1); CARBON DIOXIDE LEVEL 26 MEQ/L (21-32); CHLORIDE LEVEL 105 MEQ/L (98-107); CREATININE FOR GFR 0.69 MG/DL (0.70-1.30); GLOMERULAR FILTRATION RATE > 60.0 (>60); GLUCOSE, FASTING 249 MG/DL (70-100); POTASSIUM SERUM 4.4 MEQ/L (3.5-5.1); SODIUM LEVEL 137 MEQ/L (136-145); TOTAL PROTEIN 6.4 GM/DL (6.4-8.2)
[2021-07-20 05:27] LABS: ALBUMIN 2.4 GM/DL (3.2-5.2); ALT/SGPT 64 U/L (12-78); BILIRUBIN,DIRECT 0.2 MG/DL (0.0-0.2); BILIRUBIN,TOTAL 0.3 MG/DL (0.2-1.0); CPK CREATINE PHOSPHOKINASE 31 U/L (39-308); FERRITIN 572 NG/ML (26-388); LDH LACTATE DEHYDROGENASE 284 U/L (87-241); NT-PRO BNP 32 PG/ML (<125); TOTAL PROTEIN 7.1 GM/DL (6.4-8.2); TROPONIN I < 0.02 NG/ML (< 0.10)
[2021-07-20] MEDS: HumaLOG INSULIN (NovoLOG) PER UNIT SC SCH ×4 (07:07→20:36)
[2021-07-20] MEDS ORDERED: METAMUCIL (PSYLLIUM) PACKET PO PRN (09:05)
--- NOTE | 2021-07-20 09:29 | IPNPDOC ---
Text Note Date of Service The patient was seen on 07/20/21. NOTE Subjective: Patient is seen this morning at bedside in the ICU. He is tolerating bilevel therapy well and wears vapotherm for mealtime. He started proning for the first time yesterday after the team discussed this with him and was again encouraged to pursue this aggressively today. He continues to have a cough, but it is non-productive and feels like he has some chest congestion. He admits to chest pain with coughing, but otherwise is comfortable. He denies any fevers, chills, SOB, abdominal pain, nausea, vomiting. He still has not had a bowel movement. Objective: Vitals: See below General: Sitting upright in bed with Bipap applied to face in no acute distress HEENT: NC, AT. EOMI, no scleral icterus. mucous membranes moist. Neck: No lymphadenopathy or JVD CV: RRR, Normal S1 and S2. No murmurs, gallops, or rubs. Resp: CTAB with diminished breath sounds. Rhonchi throughout with faint crackles at lung bases. Abdomen: Bowel sounds present. Soft, NT, ND. Obese abdomen. Extremities: No swelling or edema. Vascular: Capillary refill <2 seconds, distal pulses intact Neurologic: Moving all 4 extremities, no focal neurologic deficits. Psych: Normal mood and affect Imagin07/16/2021 chest x-ray: "Impression: Infiltrates compatible with multifocal pneumonia and COVID-19 pulmonary disease" 07/16/2021 CT angiogram chest: "Impression: 1. No pulmonary embolism. 2. Ground glass opacities in a predominantly peripheral distribution in both lungs with areas of intralobular septal thickening ("crazy paving"?) And superimposed consolidation, which are findings in keeping with the patient's history of Covid positive pneumonia" 07/19/2021 chest x-ray: "Impression: Stable right lung infiltrates. Mild increased left lung infiltrates." Assessment/Plan: #. Acute hypoxic respiratory failure likely secondary to COVID-19 pneumonia - Tolerating Bilevel well, repeat ABG from yesterday s/p bilevel, currently at 20/16 @ 70% FiO2 - Maxed out CPAP, vapotherm tried/failed. - Pulmonary service consulted for bilevel management, recommendations appreciated, will continue with settings as per their recommendations. -COVID+ on 07/09, day 12 of illness. Unvaccinated. -Remdesivir started 07/16 will continue for 10 days, stop date 07/26 in conjunction w/ baricitinib (started on 07/19 and discussed with pulmonary service) -IV Decadron started 07/16, 12 mg IV daily, with plans for 10 day course. -Incentive spirometry/acapella/awake pronation encouraged #. Superimposed pneumonia - CTA chest showing consolidations - Repeat chest x-ray showing worsened left lower lobe infiltrates and stable right lower lobe infiltrate - 07/16 Rocephin started for CAP, continuing - 07/16 azithromycin x3 days; doxycycline started 07/19 - Pro-stephenie <0.03 - urine legionella, Mycoplasma, Urine strep pending, sputum culture pending #. Hyponatremia -Resolved. #. T2DM -Sliding scale insulin -Changing Levemir to 45 units twice daily -Consistent carb diet #. BERTO -Home settings are alternating CPAP pressures between 15-21 w/ 5L O2 bleed -Respiratory has recommended 17 cm H2O w/ bleed in for O2<88% QHS #. Hx of chronic back pain -Continue home Ms Contin 15 mg BID #. PTSD -Continue home Prazosin -If anxiety worsens may consider re-adding home atarax or vilazodone #. HTN -Verapamil DC'd for the time being, his blood pressures have been stable -If restating BP meds, should be on SANDRINE inhibitor for diabetes #.Dyslipidemia -Continue home pravastatin #. Obesity Complicating care. BMI 34 #. DVT prophylaxis: prophylactic 0.5mg/kg dose CODE STATUS: Full code Disposition: Pending clinical improvement VS,Tony, I+O VS, Tony, I+O Laboratory Tests 07/20/21 04:44 Vital Signs Date Time Temp Pulse Resp B/P (MAP) Pulse Ox O2 Delivery O2 Flow Rate FiO2 07/20/21 08:22 70 07/20/21 05:00 58 93 NIPPV (BIPAP/CPAP) 07/20/21 04:00 97.7 17 120/85 (97) 07/19/21 13:00 40.0 I&O- Last 24 Hours up to 6 AM 07/20/21 05:59 Intake Total 2050 ml Output Total 3000 ml Balance -950 ml GME ATTESTATION GME ATTESTATION My faculty preceptor for this patient encounter was physically present during the encounter and was fully available. All aspects of the patient interview, examination, medical decision making process, and medical care plan development were reviewed and approved by the faculty preceptor. The faculty preceptor is aware and concurs with the plan as stated in the body of this note and will attest to such by his/her cosignature. ATTENDING NOTE Attending Attestation: I saw and evaluated the patient. I agree with the finding and the plan of care as documented in the residents note. GRACE MULLER DO Jul 20, 2021 09:29 FARIDEH LINCOLN MD Jul 21, 2021 08:25
[2021-07-20] MEDS: MAGNESIUM OXIDE 400MG TAB (MAG-OX) PO SCH (09:41)
[2021-07-20] MEDS: DOCUSATE SODIUM 100MG CAPSULE PO SCH ×2 (09:41→20:32)
[2021-07-20] MEDS: MORPHINE 15 MG SA TAB PO SCH ×2 (09:42→20:33)
[2021-07-20] MEDS: BARICITINIB 2MG TABLET (OLUMIANT) FOR EUA PO SCH (09:43)
[2021-07-20] MEDS: dexameTHASONE 20MG/5ML VIAL (J1100 PER 1MG) IV SCH (09:44)
[2021-07-20] MEDS: LEVEMIR (INSULIN DETEMIR) 1 UNITS/0.01ML SC SCH ×2 (09:45→20:36)
[2021-07-20] MEDS: ENOXAPARIN 60MG/0.6ML SYRINGE (J1650 PER 10MG) SC SCH ×2 (09:45→20:36)
[2021-07-20] MEDS: DOXYCYCLINE HYCLATE 100 MG in D5W MINI-BAG PLUS 100 ML IV SCH ×2 (09:46→22:34)
[2021-07-20] MEDS: guaiFENesin ER 600 MG TAB PO SCH ×2 (09:49→20:36)
--- NOTE | 2021-07-20 10:52 | CR ---
CONSULTATION DATE: 07/20/2021 ATTENDING PHYSICIAN: FARIDEH LINCOLN M.D. REASON FOR CONSULTATION: Hypoxemia secondary to COVID pneumonia. HISTORY OF PRESENT ILLNESS: Mr. Renteria is a pleasant 41-year-old gentleman admitted on 07/16/2021. He has known insulin dependent diabetes mellitus, came to the ER as he had known COVID diagnosed on July 09 but was more short of breath at home with decreasing oxygen saturation levels. CT scan done in the ER quite consistent with COVID pneumonia with diffuse hazy ground-glass opacities. He was therefore admitted. He was treated with Solu-Medrol and Remdesivir. He had elevated inflammatory markers. Over the next several days, he had increasing oxygen requirements and increasing shortness of breath. He initially actually did worse on CPAP, was placed back on Vapotherm but then maxed out on that. He was then placed on noninvasive support and I am asked now to assist in his care. Manipulations to the device under my suggestion. He is now starting to prone and is clearly doing better from an oxygenation standpoint. ALLERGIES: Listed as vomiting from Morphine and fatigue from Ziprasidone. MEDICATIONS IN THE HOSPITAL: 1. Lovenox 50 mg twice daily. 2. Remdesivir. 3. Ceftriaxone. 4. Insulin on a sliding scale. 5. Tessalon Perles. 6. Flexeril. 7. Vicodin. 8. Atarax. 9. Morphine. 10.Minipress. 11.Decadron currently 12 mg daily. 12.Baricitinib 4 mg daily. 13.Doxycycline. 14.Metamucil. 15.Guaifenesin. MEDICAL HISTORY: Significant for Type 2 diabetes mellitus, now insulin requiring, PTSD, previous TBI with residual headaches. SURGICAL HISTORY: He has had an appendectomy and some orthopedic procedures. SOCIAL HISTORY: He lives at home with supportive family. Children also had COVID. No alcohol or tobacco use. FAMILY HISTORY: Noncontributory. REVIEW OF SYSTEMS: As per the HPI, otherwise constitutional significant for recent fevers. HEENT: Unremarkable for double or blurry vision. Pulmonary is as stated in the HPI. Cardiac: Negative for angina. GI: Negative for nausea or vomiting. : Unremarkable for dysuria. Neurologic: Unremarkable for any seizures. He does have headaches. Endocrine: Significant for his diabetes. Hematologic: Unremarkable for bruising or bleeding. Dermatologic unremarkable for rashes or psoriasis. Musculoskeletal unremarkable for any new arthralgias, myalgias. Endocrine unremarkable for diabetes, thyroid disease. He does have a history of prostatectomy. Immunologic and allergic unremarkable. Psychiatric significant for his PTSD. PHYSICAL EXAMINATION: General: Currently, a pleasant gentleman seated in bed in the Intensive Care Unit. He is on Vapotherm with a saturation of 90% on 70% FIO2. Blood pressure 120/86, heart rate 74 and regular. Respiratory rate 18 to 20 without accessory muscle use. HEENT: Normocephalic, atraumatic. Pupils reactive. Neck is supple. Trachea is in the midline. Mucous membranes are moist. Airway is class III. Trachea is in the midline. Chest shows diminished but reasonably symmetric expansion. Percussion is reasonable. Tactile fremitus palpable. There is some faint crackles in the mid zone that do not clear with cough or deep inspiration. Cardiac exam is regular with no murmur or gallop. Peripheral pulses are palpable with no edema. Abdomen is soft, nontender with active bowel sounds. No convincing organomegaly or masses. Extremities: No cyanosis or clubbing. Neurologic: He is awake, alert and appropriate. Psychiatric: Normal mood and affect. Pulse oximetry is as outlined above. Chest x-ray and CT scans clearly shows findings consistent with COVID. X-ray done yesterday compared to one from several days does show a mild progression in his intersitial findings. LABORATORY DATA: Most recent blood work shows white blood cell count of 6.4 today, hemoglobin 12.5, platelets 452,000, sodium is 137, potassium is 4.4, chloride 105, CO2 26, BUN 21 and creatinine 0.69, glucose of 249. Fibrinogen today down to 581. Procalcitonin on admission 0.34. __ 572 yesterday, down from 1006 the day before. D-Dimer on the was 863, not repeated. IMPRESSION: 1. Hypoxemic respiratory failure secondary to COVID pneumonia. 2. COVID pneumonia. 3. No COVID vaccination. 4. Insulin dependent diabetes mellitus. RECOMMENDATIONS: At this point, I am in agreement to Baricitinib to his Remdesivir. Certainly, one can maximize his steroids. He is on Lovenox, dose adjusted. At this point, I would continue as outlined above. I have no problems continuing his current antimicrobials with the borderline procalcitonin. At this point, he has made progress and hopefully that will continue. He has been cooperative with proning and that has seemed to help as his oxygen saturations improve when he does. He will continue to be followed while he is here in the hospital. Further recommendations will be made in the progress record as new information becomes available.
[2021-07-20] MEDS: PRAZOSIN 1 MG CAP PO SCH (20:32)
[2021-07-20] MEDS: PRAVASTATIN 10 MG TAB PO SCH (20:33)
[2021-07-20] MEDS: cefTRIAXone SOD 1 GM in D5W MINI-BAG PLUS 50 ML IV SCH (20:38)
[2021-07-20] MEDS ORDERED: LEVEMIR (INSULIN DETEMIR) 1 UNITS/0.01ML SC SCH (21:00)
[2021-07-20] MEDS: REMDESIVIR 100 MG in NS 250 ML IV SCH ×3 (23:37)
[2021-07-21] VITALS (7 sets, daily range): BP systolic 97–113; BP diastolic 56–71; O2SAT 94
[2021-07-21] MEDS: SODIUM CHLORIDE 0.9% INJ 10 ML SYR IV SCH
[2021-07-21 06:04] LABS: HEMATOCRIT 38.1 % (42.0-52.0); HEMOGLOBIN 12.8 g/dl (13.5-17.5); MEAN CORPUSCULAR HEMOGLOBIN 26.4 pg (27.0-33.0); MEAN CORPUSCULAR HGB CONC 33.6 g/dl (32.0-36.5); MEAN CORPUSCULAR VOLUME 78.6 fl (80.0-96.0); PLATELET COUNT, AUTOMATED 514 10^3/uL (150-450); RED BLOOD COUNT 4.85 10^6/uL (4.30-6.10); WHITE BLOOD COUNT 9.2 10^3/uL (4.0-10.0)
[2021-07-21 06:27] LABS: ALBUMIN 2.6 GM/DL (3.2-5.2); ALT/SGPT 91 U/L (12-78); BILIRUBIN,TOTAL 0.5 MG/DL (0.2-1.0); BLOOD UREA NITROGEN 24 MG/DL (7-18); CALCIUM LEVEL 8.6 MG/DL (8.5-10.1); CARBON DIOXIDE LEVEL 26 MEQ/L (21-32); CHLORIDE LEVEL 103 MEQ/L (98-107); CREATININE FOR GFR 0.75 MG/DL (0.70-1.30); GLOMERULAR FILTRATION RATE > 60.0 (>60); GLUCOSE, FASTING 118 MG/DL (70-100); POTASSIUM SERUM 4.2 MEQ/L (3.5-5.1); SODIUM LEVEL 136 MEQ/L (136-145); TOTAL PROTEIN 6.7 GM/DL (6.4-8.2)
[2021-07-21] MEDS: HumaLOG INSULIN (NovoLOG) PER UNIT SC SCH ×4 (07:30→20:49)
[2021-07-21] MEDS: DOCUSATE SODIUM 100MG CAPSULE PO SCH ×2 (08:33→20:38)
[2021-07-21] MEDS: guaiFENesin ER 600 MG TAB PO SCH ×2 (08:33→20:36)
[2021-07-21] MEDS: MAGNESIUM OXIDE 400MG TAB (MAG-OX) PO SCH (08:34)
[2021-07-21] MEDS: BARICITINIB 2MG TABLET (OLUMIANT) FOR EUA PO SCH (08:35)
[2021-07-21] MEDS: LEVEMIR (INSULIN DETEMIR) 1 UNITS/0.01ML SC SCH ×2 (08:35→21:19)
[2021-07-21] MEDS: dexameTHASONE 20MG/5ML VIAL (J1100 PER 1MG) IV SCH (08:35)
[2021-07-21] MEDS: ENOXAPARIN 60MG/0.6ML SYRINGE (J1650 PER 10MG) SC SCH ×2 (08:37→20:37)
[2021-07-21] MEDS: MORPHINE 15 MG SA TAB PO SCH ×2 (08:45→20:37)
--- NOTE | 2021-07-21 09:37 | IPNPDOC ---
Text Note Date of Service The patient was seen on 07/21/21. NOTE Subjective: Patient is seen this morning at bedside in the ICU. Continues to do well on bilevel and is even tolerating his vapotherm currently. He only proned for 2 hours yesterday. His cough is improved and he is bringing up more sputum since starting mucinex. He denies any fevers, chills, SOB, abdominal pain, nausea, vomiting. He still has not had a bowel movement. Objective: Vitals: See below General: Sitting upright in bed with vapotherm applied to face in no acute dis tress HEENT: NC, AT. EOMI, no scleral icterus. mucous membranes moist. Neck: No lymphadenopathy or JVD CV: RRR, Normal S1 and S2. No murmurs, gallops, or rubs. Resp: CTAB with clear breath sounds. No wheezes, crackles, or rhonchi heard today. Abdomen: Bowel sounds present. Soft, NT, ND. Obese abdomen. Extremities: No swelling or edema. Vascular: Capillary refill <2 seconds, distal pulses intact Neurologic: Moving all 4 extremities, no focal neurologic deficits. Psych: Normal mood and affect Imagin07/16/2021 chest x-ray: "Impression: Infiltrates compatible with multifocal pneumonia and COVID-19 pulmonary disease" 07/16/2021 CT angiogram chest: "Impression: 1. No pulmonary embolism. 2. Ground glass opacities in a predominantly peripheral distribution in both lungs with areas of intralobular septal thickening ("crazy paving"?) And superimposed consolidation, which are findings in keeping with the patient's history of Covid positive pneumonia" 07/19/2021 chest x-ray: "Impression: Stable right lung infiltrates. Mild increased left lung infiltrates." Assessment/Plan: #. Acute hypoxic respiratory failure likely secondary to COVID-19 pneumonia - Tolerating Bilevel well with intermittent vapotherm use, management of bilevel per pulm, but currently at 20/16, FiO2 trending down - Pulmonary service consulted for bilevel management, recommendations appreciated, will continue with settings as per their recommendations. -COVID+ on 07/09, day 13 of illness. Unvaccinated. -Remdesivir started 07/16 will continue for 10 days, stop date 07/26 in conjunction w/ baricitinib (started on 07/19 and discussed with pulmonary service) -IV Decadron started 07/16, 12 mg IV daily, with plans for 10 day course. -Incentive spirometry/acapella/awake pronation encouraged with goal of 12 hours of proning daily #. Superimposed pneumonia - CTA chest showing consolidations - Repeat chest x-ray showing worsened left lower lobe infiltrates and stable right lower lobe infiltrate - 07/16 Rocephin started for CAP, continuing for 10 days total - 07/16 azithromycin x3 days; doxycycline started 07/19 - Pro-stephenie <0.03 - urine legionella, Mycoplasma, Urine strep pending, sputum culture pending #. Transaminitis -May need to consider holding Remdesivir, will give today and trend a CMP tomorrow #. Hyponatremia -Resolved. #. T2DM -Sliding scale insulin -Changing Levemir to 45 units twice daily -Consistent carb diet #. BERTO -Home settings are alternating CPAP pressures between 15-21 w/ 5L O2 bleed -Respiratory has recommended 17 cm H2O w/ bleed in for O2<88% QHS #. Hx of chronic back pain -Continue home Ms Contin 15 mg BID #. PTSD -Continue home Prazosin -If anxiety worsens may consider re-adding home atarax or vilazodone #. HTN -Verapamil DC'd for the time being, his blood pressures have been stable -If restating BP meds, should be on SANDRINE inhibitor for diabetes #.Dyslipidemia -Continue home pravastatin #. Obesity Complicating care. BMI 34 #. DVT prophylaxis: prophylactic 0.5mg/kg dose CODE STATUS: Full code Disposition: Pending clinical improvement VS,Melanye, I+O VS, Fishbone, I+O Laboratory Tests 07/21/21 05:45 Vital Signs Date Time Temp Pulse Resp B/P (MAP) Pulse Ox O2 Delivery O2 Flow Rate FiO2 07/21/21 08:45 27 92 07/21/21 08:05 HVNI-Vapotherm 40.0 100 07/21/21 04:00 97.1 63 104/64 (77) I&O- Last 24 Hours up to 6 AM 07/21/21 05:59 Intake Total 2010 ml Output Total 2675 ml Balance -665 ml GME ATTESTATION GME ATTESTATION My faculty preceptor for this patient encounter was physically present during the encounter and was fully available. All aspects of the patient interview, examination, medical decision making process, and medical care plan development were reviewed and approved by the faculty preceptor. The faculty preceptor is aware and concurs with the plan as stated in the body of this note and will attest to such by his/her cosignature. ATTENDING NOTE Attending Attestation: I saw and evaluated the patient. I agree with the finding and the plan of care as documented in the residents note. GRACE MULLER DO Jul 21, 2021 09:37 FARIDEH LINCOLN MD Jul 22, 2021 06:40
[2021-07-21] MEDS ORDERED: SENNA 8.6 MG TAB (SENOKOT) PO PRN (10:40)
--- NOTE | 2021-07-21 10:49 | IPNPDOC ---
Subjective Date Seen The patient was seen on 07/21/21. Subjective Chief Complaint/HPI Patient complains of shortness of breath with mild exertion. He has dry cough. He denies of chest pain, fever, chills, palpitation. General: Denies: Chills, Fatigue Constitutional: Denies: Chills, Fever Eyes: Denies: Pain ENT: Denies: Sore Throat Skin: Denies: Rash Pulmonary: Reports: Dyspnea, Cough (Dry cough) Cardiovascular: Denies: Chest Pain, Palpitations Gastrointestinal: Denies: Nausea, Vomiting, Abdominal Pain, Diarrhea Neurological: Denies: Weakness, Numbness Objective Physical Examination General Exam: Positive: Alert, Cooperative, Mild Distress Eye Exam: Negative: Sclera icteric ENT Exam: Positive: Atraumatic Neck Exam: Positive: Supple; Negative: JVD Chest Exam: Positive: Rales (Bilateral) Heart Exam: Positive: Rate Normal, Normal S1, Normal S2; Negative: Murmurs Abdomen Exam: Positive: Normal bowel sounds Extremity Exam: Negative: Clubbing, Cyanosis, Edema Skin Exam: Positive: Other skin issue (Multiple skin tattoos); Negative: Rash Neuro Exam: Positive: Normal Speech, Normal Tone Psych Exam: Positive: Anxiety Assessment /Plan Assessment This is a 41-year-old gentleman with past medical history of diabetes and BERTO admitted to the hospital with COVID-19 pneumonia ARDS. 1. Hypoxic respiratory failure 2. COVID-19 ARDS 3. Diabetes 4. BERTO Plan/VTE VTE Prophylaxis Ordered?: Yes Plan 1. Continue with remdesivir, Decadron, Barcitinib for COVID-19 ARDS. 2. Encourage self proning. 3. On empiric antibiotic for possible community-acquired pneumonia although low suspicion given procalcitonin level. Recommend to complete 5 days of empiric antibiotics. 4. Optimize glycemic control. Glargine dose has been readjusted today. 5. Intermittent Vapotherm with BiPAP 20/16. Low threshold for intubation. Patient wished to remain full code. Disposition Continue ICU care VS, I&O, 24H, Fishbone Vital Signs/I&O Vital Signs Date Time Temp Pulse Resp B/P (MAP) Pulse Ox O2 Delivery O2 Flow Rate FiO2 07/21/21 09:30 NIPPV (BIPAP/CPAP) 70 07/21/21 08:45 27 92 07/21/21 08:05 40.0 9/3/21 08:00 96.5 74 97/56 (70) I&O- Last 24 Hours up to 6 AM 07/21/21 06:00 Intake Total 2010 ml Output Total 2675 ml Balance -665 ml Laboratory Data 24H LABS Laboratory Tests 2 07/20/21 11:51: Bedside Glucose (Misc Panel) 290H 07/20/21 16:42: Bedside Glucose (Misc Panel) 386H 07/20/21 20:29: Bedside Glucose (Misc Panel) 327H 07/21/21 05:45: Nucleated Red Blood Cells % (auto) 0.0, Anion Gap 7L, Glomerular Filtration Rate > 60.0, Calcium Level 8.6, Total Bilirubin 0.5#, Aspartate Amino Transf (AST/SGOT) 43H, Alanine Aminotransferase (ALT/SGPT) 91H, Alkaline Phosphatase 64, Total Protein 6.7, Albumin 2.6L, Albumin/Globulin Ratio 0.6 CBC/BMP Laboratory Tests 07/21/21 05:45 Microbiology Microbiology 07/18/21 Gram Stain - Final, Complete 07/18/21 Sputum Culture - Final, Complete 07/16/21 Blood Culture - Preliminary, Resulted No Growth after 72 hours. All specime... WILLIAM HUMPHREY MD Jul 21, 2021 10:49
[2021-07-21] MEDS ORDERED: BISACODYL 10 MG SUPP PR ONE (11:00)
[2021-07-21] MEDS: DOXYCYCLINE HYCLATE 100 MG in D5W MINI-BAG PLUS 100 ML IV SCH ×2 (11:09→21:19)
[2021-07-21] MEDS: PRAZOSIN 1 MG CAP PO SCH (20:37)
[2021-07-21] MEDS: PRAVASTATIN 10 MG TAB PO SCH (20:38)
[2021-07-21] MEDS: cefTRIAXone SOD 1 GM in D5W MINI-BAG PLUS 50 ML IV SCH (20:39)
[2021-07-22] VITALS: BP 113/70
[2021-07-22 04:00] VITALS: BP 110/72
[2021-07-22 05:19] LABS: HEMATOCRIT 38.9 % (42.0-52.0); HEMOGLOBIN 13.4 g/dl (13.5-17.5); MEAN CORPUSCULAR HGB CONC 34.4 g/dl (32.0-36.5); MEAN CORPUSCULAR VOLUME 78.4 fl (80.0-96.0); PLATELET COUNT, AUTOMATED 541 10^3/uL (150-450); RED BLOOD COUNT 4.96 10^6/uL (4.30-6.10)
[2021-07-22 05:33] LABS: INR 1.08; PROTHROMBIN TIME 14.4 SECONDS (12.7-14.5)
[2021-07-22 05:34] LABS: PARTIAL THROMBOPLASTIN TIME 27.9 SECONDS (25.9-37.0)
[2021-07-22 05:43] LABS: ALBUMIN 2.6 GM/DL (3.2-5.2); ALT/SGPT 97 U/L (12-78); BILIRUBIN,TOTAL 0.4 MG/DL (0.2-1.0); BLOOD UREA NITROGEN 20 MG/DL (7-18); CALCIUM LEVEL 8.8 MG/DL (8.5-10.1); CARBON DIOXIDE LEVEL 26 MEQ/L (21-32); CHLORIDE LEVEL 103 MEQ/L (98-107); CREATININE FOR GFR 0.75 MG/DL (0.70-1.30); GLOMERULAR FILTRATION RATE > 60.0 (>60); GLUCOSE, FASTING 202 MG/DL (70-100); POTASSIUM SERUM 4.4 MEQ/L (3.5-5.1); SODIUM LEVEL 136 MEQ/L (136-145); TOTAL PROTEIN 6.7 GM/DL (6.4-8.2)
[2021-07-22 05:49] LABS: ALBUMIN 2.6 GM/DL (3.2-5.2); ALT/SGPT 97 U/L (12-78); BILIRUBIN,DIRECT 0.1 MG/DL (0.0-0.2); BILIRUBIN,TOTAL 0.5 MG/DL (0.2-1.0); CPK CREATINE PHOSPHOKINASE 21 U/L (39-308); FERRITIN 402 NG/ML (26-388); LDH LACTATE DEHYDROGENASE 259 U/L (87-241); NT-PRO BNP 14 PG/ML (<125); TOTAL PROTEIN 7.1 GM/DL (6.4-8.2); TROPONIN I < 0.02 NG/ML (< 0.10)
[2021-07-22 08:17] VITALS: BP 111/81
[2021-07-22] MEDS: dexameTHASONE 20MG/5ML VIAL (J1100 PER 1MG) IV SCH (08:18)
[2021-07-22] MEDS: ENOXAPARIN 60MG/0.6ML SYRINGE (J1650 PER 10MG) SC SCH ×2 (08:19→20:36)
[2021-07-22] MEDS: LEVEMIR (INSULIN DETEMIR) 1 UNITS/0.01ML SC SCH ×2 (08:19→21:35)
[2021-07-22] MEDS: HumaLOG INSULIN (NovoLOG) PER UNIT SC SCH ×4 (08:20→20:37)
[2021-07-22] MEDS: MAGNESIUM OXIDE 400MG TAB (MAG-OX) PO SCH (08:21)
[2021-07-22] MEDS: BARICITINIB 2MG TABLET (OLUMIANT) FOR EUA PO SCH (08:22)
[2021-07-22] MEDS: guaiFENesin ER 600 MG TAB PO SCH ×2 (08:22→20:35)
[2021-07-22] MEDS: MORPHINE 15 MG SA TAB PO SCH ×2 (08:23→20:35)
[2021-07-22] MEDS: DOCUSATE SODIUM 100MG CAPSULE PO SCH ×2 (08:23→20:35)
--- NOTE | 2021-07-22 09:01 | IPNPDOC ---
Text Note Date of Service The patient was seen on 07/22/21. NOTE Subjective: Patient seen and examined at bedside. No acute overnight events reported. Patient voices no new medical complaints this morning. He is anxious to return home. Objective: Vitals: See below General: Sitting upright in bed with vapotherm applied to face in no acute di stress HEENT: NC, AT. EOMI, no scleral icterus Neck: No JVD Resp: no accessory muscle use, speaking full sentences easily without SOB MSK: full ROM in large joints Extremities: No swelling or edema. Skin: no obvious rashes Neurologic: no gross focal deficits Psych: AAOx3 Assessment/Plan: 41-year-old male admitted for acute hypoxic respiratory failure secondary to COVID-19 infection, no history of vaccination for COVID-19. #. Acute hypoxic respiratory failure likely secondary to COVID-19 pneumonia - saturating well with vapotherm - pulm c/s appreciated -COVID+ on 07/09, day 14 of illness. Unvaccinated. -Remdesivir started 07/16 will continue for 10 days, stop date 07/26 in conjunction w/ baricitinib (started on 07/19 and discussed with pulmonary service) -IV Decadron started 07/16, 12 mg IV daily, with plans for 10 day course. -Incentive spirometry/acapella/awake pronation encouraged with goal of 12 hours of proning daily #. Superimposed pneumonia - CTA chest showing consolidations - Repeat chest x-ray showing worsened left lower lobe infiltrates and stable right lower lobe infiltrate - 07/16 Rocephin started for CAP - 07/16 azithromycin x3 days; doxycycline started 07/19 - Pro-stephenie 0.34, 0.17, <0.05 - likely complete 5-7 days of abx then d/c - urine legionella, Mycoplasma, Urine strep pending - sputum culture normal rigo #. Transaminitis -appears to have plateaued, will continue to trend #. Hyponatremia -Resolved. #. T2DM -Sliding scale insulin -levemir 45 BID -Consistent carb diet #. BERTO -Home settings are alternating CPAP pressures between 15-21 w/ 5L O2 bleed -Respiratory has recommended 17 cm H2O w/ bleed in for O2<88% QHS #. Hx of chronic back pain -Continue home Ms Contin 15 mg BID #. PTSD -Continue home Prazosin -If anxiety worsens may consider re-adding home atarax or vilazodone #. HTN -Verapamil DC'd for the time being, his blood pressures have been stable -If restating BP meds, should be on SANDRINE inhibitor for diabetes #.Dyslipidemia -Continue home pravastatin #. Obesity Complicating care. BMI 34 #. DVT prophylaxis: prophylactic 0.5mg/kg dose CODE STATUS: Full code Disposition: improving, pending further clinical improvement VS,Terabone, I+O VS, Fishbone, I+O Laboratory Tests 07/22/21 05:08 Vital Signs Date Time Temp Pulse Resp B/P (MAP) Pulse Ox O2 Delivery O2 Flow Rate FiO2 07/22/21 08:23 22 07/22/21 07:00 94 HVNI-Vapotherm 40.0 100 07/22/21 07:00 66 07/22/21 04:00 97.8 110/72 (85) I&O- Last 24 Hours up to 6 AM 07/22/21 06:00 Intake Total 2170 ml Output Total 2100 ml Balance 70 ml FARIDEH LINCOLN MD Jul 22, 2021 09:00
[2021-07-22 11:29] VITALS: BP 116/81
[2021-07-22] MEDS: DOXYCYCLINE HYCLATE 100 MG in D5W MINI-BAG PLUS 100 ML IV SCH ×2 (11:31→21:35)
--- NOTE | 2021-07-22 12:03 | IPNPDOC ---
Subjective Date Seen The patient was seen on 07/22/21. Subjective Chief Complaint/HPI Patient has absolutely no complaint today. He denies of fever, chills, shortness of breath, cough, chest pain, palpitation. General: Denies: Chills, Fatigue Constitutional: Denies: Chills, Fever ENT: Denies: Sore Throat Skin: Denies: Rash Pulmonary: Denies: Dyspnea, Cough Cardiovascular: Denies: Chest Pain, Palpitations, Orthopnea, Edema Gastrointestinal: Denies: Nausea, Abdominal Pain, Diarrhea Neurological: Denies: Weakness, Numbness Objective Physical Examination General Exam: Positive: Alert, Cooperative Eye Exam: Negative: Sclera icteric ENT Exam: Positive: Atraumatic Neck Exam: Positive: Supple; Negative: JVD Chest Exam: Positive: Clear to auscultation Heart Exam: Positive: Rate Normal, Normal S1, Normal S2; Negative: Murmurs Abdomen Exam: Positive: Normal bowel sounds Extremity Exam: Negative: Clubbing, Cyanosis, Edema Skin Exam: Positive: Other skin issue (Multiple skin tattoos); Negative: Rash Neuro Exam: Positive: Normal Speech, Normal Tone Psych Exam: Positive: Anxiety Assessment /Plan Assessment This is a 41-year-old gentleman with past medical history of diabetes and BERTO admitted to the hospital with COVID-19 pneumonia ARDS. 1. Hypoxic respiratory failure 2. COVID-19 ARDS 3. Diabetes 4. BERTO Plan/VTE VTE Prophylaxis Ordered?: Yes Plan 1. Continue with remdesivir, Decadron, Barcitinib for COVID-19 ARDS. 2. Encourage self proning. 3. On empiric antibiotic for possible community-acquired pneumonia although low suspicion given procalcitonin level. Recommend to complete 5 days of empiric antibiotics. 4. Optimize glycemic control. 5. Intermittent Vapotherm with BiPAP /. He is slowly improving from respiratory standpoint today. Disposition Continue ICU care. VS, I&O, 24H, Fishbone Vital Signs/I&O Vital Signs Date Time Temp Pulse Resp B/P (MAP) Pulse Ox O2 Delivery O2 Flow Rate FiO2 07/22/21 08:23 22 07/22/21 08:17 95.1 63 111/81 (91) 90 HVNI-Vapotherm 40.0 100 I&O- Last 24 Hours up to 6 AM 07/22/21 06:00 Intake Total 2170 ml Output Total 2100 ml Balance 70 ml Laboratory Data 24H LABS Laboratory Tests 2 07/21/21 16:46: Bedside Glucose (Misc Panel) 309H 07/21/21 20:35: Bedside Glucose (Misc Panel) 341H 07/22/21 05:08: Nucleated Red Blood Cells % (auto) 0.0, Prothrombin Time 14.4H, Prothromb Time International Ratio 1.08, Activated Partial Thromboplast Time 27.9, Fibrinogen 471H, Anion Gap 7L, Glomerular Filtration Rate > 60.0, Calcium Level 8.8, Ferritin 402H, Total Bilirubin 0.4, Direct Bilirubin 0.1, Aspartate Amino Transf (AST/SGOT) 28, Alanine Aminotransferase (ALT/SGPT) 97H, Alkaline Phosphatase 69, Lactate Dehydrogenase 259H, Total Creatine Kinase 21L, Troponin I < 0.02, MU-God-Y-Type Natriuretic Peptide 14, Total Protein 6.7, Albumin 2.6L, Albumin/Globulin Ratio 0.6 07/22/21 11:27: Bedside Glucose (Misc Panel) 191H CBC/BMP Laboratory Tests 07/22/21 05:08 Microbiology Microbiology 07/18/21 Gram Stain - Final, Complete 07/18/21 Sputum Culture - Final, Complete 07/16/21 Blood Culture - Final, Complete NO GROWTH AFTER 5 DAYS WILLIAM HUMPHREY MD Jul 22, 2021 12:03
[2021-07-22 17:10] LABS: BODY FLUID CULTURE Not indicated. (.); LEGIONELLA ANTIGEN URINE Negative (Negative); MYCOPLASMA PNEUMONIAE IgG 220 U/mL (0-99); MYCOPLASMA PNEUMONIAE IgM <770 U/mL (0-769); ORGANISM ID Not indicated. (.); SPECIMEN SOURCE Urine (.); URINE STREP PNEUMONIAE ANTIGEN Negative (Negative)
[2021-07-22 17:25] VITALS: BP 131/85
[2021-07-22 20:00] VITALS: BP 118/73
[2021-07-22] MEDS: PRAZOSIN 1 MG CAP PO SCH (20:34)
[2021-07-22] MEDS: PRAVASTATIN 10 MG TAB PO SCH (20:35)
[2021-07-22] MEDS: cefTRIAXone SOD 1 GM in D5W MINI-BAG PLUS 50 ML IV SCH (20:36)
[2021-07-23] VITALS: BP 110/66
[2021-07-23 04:00] VITALS: BP 92/50
[2021-07-23 04:55] LABS: HEMATOCRIT 39.4 % (42.0-52.0); HEMOGLOBIN 13.2 g/dl (13.5-17.5); MEAN CORPUSCULAR HEMOGLOBIN 26.4 pg (27.0-33.0); MEAN CORPUSCULAR HGB CONC 33.5 g/dl (32.0-36.5); MEAN CORPUSCULAR VOLUME 78.8 fl (80.0-96.0); PLATELET COUNT, AUTOMATED 529 10^3/uL (150-450); WHITE BLOOD COUNT 9.2 10^3/uL (4.0-10.0)
[2021-07-23 05:18] LABS: ALBUMIN 2.6 GM/DL (3.2-5.2); ALT/SGPT 85 U/L (12-78); BILIRUBIN,TOTAL 0.5 MG/DL (0.2-1.0); BLOOD UREA NITROGEN 21 MG/DL (7-18); CALCIUM LEVEL 8.7 MG/DL (8.5-10.1); CARBON DIOXIDE LEVEL 27 MEQ/L (21-32); CHLORIDE LEVEL 104 MEQ/L (98-107); CREATININE FOR GFR 0.78 MG/DL (0.70-1.30); GLOMERULAR FILTRATION RATE > 60.0 (>60); GLUCOSE, FASTING 176 MG/DL (70-100); POTASSIUM SERUM 3.8 MEQ/L (3.5-5.1); SODIUM LEVEL 137 MEQ/L (136-145); TOTAL PROTEIN 7.1 GM/DL (6.4-8.2)
[2021-07-23] MEDS ORDERED: DOCUSATE SODIUM 100MG CAPSULE PO PRN (07:20)
[2021-07-23 07:49] VITALS: BP 117/79
[2021-07-23] MEDS: BARICITINIB 2MG TABLET (OLUMIANT) FOR EUA PO SCH (07:51)
[2021-07-23] MEDS: dexameTHASONE 20MG/5ML VIAL (J1100 PER 1MG) IV SCH (07:52)
[2021-07-23] MEDS: guaiFENesin ER 600 MG TAB PO SCH ×2 (07:52→21:37)
[2021-07-23] MEDS: MAGNESIUM OXIDE 400MG TAB (MAG-OX) PO SCH (07:52)
[2021-07-23] MEDS: MORPHINE 15 MG SA TAB PO SCH ×2 (07:53→21:38)
[2021-07-23] MEDS: LEVEMIR (INSULIN DETEMIR) 1 UNITS/0.01ML SC SCH ×2 (07:54→21:35)
[2021-07-23] MEDS: HumaLOG INSULIN (NovoLOG) PER UNIT SC SCH ×4 (07:54→21:35)
[2021-07-23] MEDS: ENOXAPARIN 60MG/0.6ML SYRINGE (J1650 PER 10MG) SC SCH ×2 (07:55→21:36)
--- NOTE | 2021-07-23 09:20 | IPNPDOC ---
Subjective Date Seen The patient was seen on 07/23/21. Subjective Chief Complaint/HPI Patient has absolutely no complaint today. He denies of fever, chills, nausea, vomiting, chest pain, palpitation, shortness of breath, cough. General: Denies: Chills Constitutional: Denies: Chills, Fever ENT: Denies: Sore Throat Skin: Denies: Rash Pulmonary: Denies: Dyspnea, Cough Cardiovascular: Denies: Chest Pain, Palpitations Gastrointestinal: Denies: Nausea, Vomiting, Abdominal Pain Neurological: Denies: Weakness, Numbness Objective Physical Examination General Exam: Positive: Alert, Cooperative Eye Exam: Negative: Sclera icteric ENT Exam: Positive: Atraumatic Neck Exam: Positive: Supple; Negative: JVD Chest Exam: Positive: Clear to auscultation Heart Exam: Positive: Rate Normal, Normal S1, Normal S2; Negative: Murmurs Abdomen Exam: Positive: Normal bowel sounds Extremity Exam: Negative: Clubbing, Cyanosis, Edema Skin Exam: Positive: Other skin issue (Multiple skin tattoos); Negative: Rash Neuro Exam: Positive: Normal Speech, Normal Tone Psych Exam: Positive: Anxiety Assessment /Plan Assessment This is a 41-year-old gentleman with past medical history of diabetes and BERTO admitted to the hospital with COVID-19 pneumonia ARDS. 1. Hypoxic respiratory failure 2. COVID-19 ARDS 3. Diabetes 4. BERTO Plan/VTE VTE Prophylaxis Ordered?: Yes Plan 1. Continue with remdesivir, Decadron, Barcitinib for COVID-19 ARDS. 2. Encourage self proning. 3. Finish 5 days of empiric antibiotic 4. He is slowly improving. He appears he will no longer need BiPAP. In fact, we can potentially titrate Vapotherm down to high flow nasal cannula. If able, his family should bring his home auto titrating CPAP for him to use at nighttime when he go to sleep. I anticipate he will be discharged from the hospital in the next several days. 5. Pulmonary/ICU will sign off. Please reconsult if active critical issue arise. Disposition Continue ICU care. VS, I&O, 24H, Fishbone Vital Signs/I&O Vital Signs Date Time Temp Pulse Resp B/P (MAP) Pulse Ox O2 Delivery O2 Flow Rate FiO2 07/23/21 07:53 19 07/23/21 06:00 78 97 NIPPV (BIPAP/CPAP) 30 07/23/21 04:00 97.8 92/50 (64) 07/22/21 22:00 40.0 I&O- Last 24 Hours up to 6 AM 07/23/21 06:00 Intake Total 1700 ml Output Total 1050 ml Balance 650 ml Laboratory Data 24H LABS Laboratory Tests 2 07/22/21 11:27: Bedside Glucose (Misc Panel) 191H 07/22/21 17:26: Bedside Glucose (Misc Panel) 352H 07/22/21 19:06: Bedside Glucose (Misc Panel) 381H 07/23/21 04:44: Nucleated Red Blood Cells % (auto) 0.0, Anion Gap 6L, Glomerular Filtration Rate > 60.0, Calcium Level 8.7, Total Bilirubin 0.5, Aspartate Amino Transf (AST/SGOT) 15, Alanine Aminotransferase (ALT/SGPT) 85H, Alkaline Phosphatase 67, Total Protein 7.1, Albumin 2.6L, Albumin/Globulin Ratio 0.6 CBC/BMP Laboratory Tests 07/23/21 04:44 Microbiology Microbiology 07/18/21 Gram Stain - Final, Complete 07/18/21 Sputum Culture - Final, Complete 07/16/21 Blood Culture - Final, Complete NO GROWTH AFTER 5 DAYS WILLIAM HUMPHREY MD Jul 23, 2021 09:20
[2021-07-23 11:11] VITALS: BP 107/59
[2021-07-23] MEDS: DOXYCYCLINE HYCLATE 100 MG in D5W MINI-BAG PLUS 100 ML IV SCH ×2 (11:13→22:18)
[2021-07-23 16:29] VITALS: BP 126/86
[2021-07-23 20:00] VITALS: BP 126/103
[2021-07-23] MEDS: cefTRIAXone SOD 1 GM in D5W MINI-BAG PLUS 50 ML IV SCH (21:29)
[2021-07-23] MEDS: PRAVASTATIN 10 MG TAB PO SCH (21:37)
[2021-07-23] MEDS: PRAZOSIN 1 MG CAP PO SCH (21:38)
[2021-07-24] VITALS (7 sets, daily range): BP systolic 113–127; BP diastolic 61–80
[2021-07-24 04:57] LABS: HEMATOCRIT 37.4 % (42.0-52.0); HEMOGLOBIN 12.3 g/dl (13.5-17.5); MEAN CORPUSCULAR HEMOGLOBIN 26.3 pg (27.0-33.0); MEAN CORPUSCULAR HGB CONC 32.9 g/dl (32.0-36.5); MEAN CORPUSCULAR VOLUME 80.1 fl (80.0-96.0); PLATELET COUNT, AUTOMATED 546 10^3/uL (150-450); RED BLOOD COUNT 4.67 10^6/uL (4.30-6.10); WHITE BLOOD COUNT 8.4 10^3/uL (4.0-10.0)
[2021-07-24 05:22] LABS: ALBUMIN 2.4 GM/DL (3.2-5.2); ALT/SGPT 70 U/L (12-78); BILIRUBIN,TOTAL 0.4 MG/DL (0.2-1.0); BLOOD UREA NITROGEN 22 MG/DL (7-18); CALCIUM LEVEL 8.3 MG/DL (8.5-10.1); CARBON DIOXIDE LEVEL 25 MEQ/L (21-32); CHLORIDE LEVEL 104 MEQ/L (98-107); CREATININE FOR GFR 0.79 MG/DL (0.70-1.30); GLOMERULAR FILTRATION RATE > 60.0 (>60); GLUCOSE, FASTING 240 MG/DL (70-100); POTASSIUM SERUM 4.1 MEQ/L (3.5-5.1); SODIUM LEVEL 135 MEQ/L (136-145); TOTAL PROTEIN 6.5 GM/DL (6.4-8.2)
--- NOTE | 2021-07-24 06:42 | IPNPDOC ---
Text Note Date of Service The patient was seen on 07/23/21. NOTE Subjective: Patient seen and examined at bedside. No acute overnight events reported. Patient voices no new medical complaints this morning. Continues to feel better. Objective: Vitals: See below General: Sitting upright in bed with vapotherm applied to face in no acute distress HEENT: NC, AT. EOMI, no scleral icterus Neck: No JVD Resp: no accessory muscle use, speaking full sentences easily without SOB MSK: full ROM in large joints Extremities: No swelling or edema. Skin: no obvious rashes Neurologic: no gross focal deficits Psych: AAOx3 Assessment/Plan: 41-year-old male admitted for acute hypoxic respiratory failure secondary to COVID-19 infection, no history of vaccination for COVID-19. #. Acute hypoxic respiratory failure likely secondary to COVID-19 pneumonia - saturating well with vapotherm - pulm c/s appreciated -COVID+ on 07/09, Unvaccinated. -Remdesivir started 07/16 will continue for 10 days, stop date 07/26 in conjunction w/ baricitinib (started on 07/19 and discussed with pulmonary service) -IV Decadron started 07/16, 12 mg IV daily, with plans for 10 day course. -Incentive spirometry/acapella/awake pronation encouraged with goal of 12 hours of proning daily #. Superimposed pneumonia - CTA chest showing consolidations - Repeat chest x-ray showing worsened left lower lobe infiltrates and stable right lower lobe infiltrate - 07/16 Rocephin started for CAP - 07/16 azithromycin x3 days; doxycycline started 07/19 - likely d/c antibiotics in 1-2 days - Pro-stephenie 0.34, 0.17, <0.05 - urine legionella, Mycoplasma, Urine strep pending - sputum culture normal rigo #. Transaminitis -improving #. Hyponatremia -Resolved. #. T2DM -Sliding scale insulin -levemir 45 BID -Consistent carb diet #. BERTO -Home settings are alternating CPAP pressures between 15-21 w/ 5L O2 bleed -Respiratory has recommended 17 cm H2O w/ bleed in for O2<88% QHS #. Hx of chronic back pain -Continue home Ms Contin 15 mg BID #. PTSD -Continue home Prazosin -If anxiety worsens may consider re-adding home atarax or vilazodone #. HTN -Verapamil DC'd for the time being, his blood pressures have been stable -If restating BP meds, should be on SANDRINE inhibitor for diabetes #.Dyslipidemia -Continue home pravastatin #. Obesity Complicating care. BMI 34 #. DVT prophylaxis: prophylactic 0.5mg/kg dose CODE STATUS: Full code Disposition: improving, pending further clinical improvement VS,Fishbone, I+O VS, Fishbone, I+O Laboratory Tests 07/24/21 04:47 Vital Signs Date Time Temp Pulse Resp B/P (MAP) Pulse Ox O2 Delivery O2 Flow Rate FiO2 07/24/21 04:00 96.7 60 17 115/80 (92) 93 NIPPV (BIPAP/CPAP) 6.0 07/23/21 20:25 80 I&O- Last 24 Hours up to 6 AM 07/24/21 05:59 Intake Total 2430 ml Output Total 2025 ml Balance 405 ml FARIDEH LINCOLN MD Jul 24, 2021 06:42
--- NOTE | 2021-07-24 08:31 | IPNPDOC ---
Text Note Date of Service The patient was seen on 07/24/21. NOTE Subjective: Patient seen and examined at bedside. No acute overnight events reported. Patient voices no new medical complaints this morning. Continues to feel better. Objective: Vitals: See below General: Sitting upright in bed wearing NIPPV, NAD, in good spirits HEENT: NC, AT. EOMI Neck: No JVD Resp: no accessory muscle use, speaking full sentences easily without SOB MSK: full ROM in large joints Extremities: No swelling or edema. Skin: no obvious rashes Neurologic: no gross focal deficits Psych: AAOx3 Assessment/Plan: 41-year-old male admitted for acute hypoxic respiratory failure secondary to COVID-19 infection, no history of vaccination for COVID-19. #. Acute hypoxic respiratory failure likely secondary to COVID-19 pneumonia - saturating well with vapotherm/hi flow - pulm c/s appreciated - signed off -COVID+ on 07/09, Unvaccinated. -Remdesivir started 07/16 will continue for 10 days, stop date 07/26 in conjunction w/ baricitinib (started on 07/19 and discussed with pulmonary service) -IV Decadron started 07/16, 12 mg IV daily, with plans for 10 day course. -Incentive spirometry/acapella/awake pronation encouraged with goal of 12 hours of proning daily #. Superimposed pneumonia - CTA chest showing consolidations - Repeat chest x-ray showing worsened left lower lobe infiltrates and stable right lower lobe infiltrate - 07/16 Rocephin started for CAP - 07/16 azithromycin x3 days; doxycycline started 07/19 - likely d/c antibiotics in 1-2 days - Pro-stephenie 0.34, 0.17, <0.05 - urine legionella, Mycoplasma, Urine strep pending - sputum culture normal rigo #. Transaminitis -resolved #. Hyponatremia -Resolved. #. T2DM -Sliding scale insulin -levemir 45 BID -Consistent carb diet #. BERTO -Home settings are alternating CPAP pressures between 15-21 w/ 5L O2 bleed -Respiratory has recommended 17 cm H2O w/ bleed in for O2<88% QHS #. Hx of chronic back pain -Continue home Ms Contin 15 mg BID #. PTSD -Continue home Prazosin -If anxiety worsens may consider re-adding home atarax or vilazodone #. HTN -Verapamil DC'd for the time being, his blood pressures have been stable -If restating BP meds, should be on SANDRINE inhibitor for diabetes #.Dyslipidemia -Continue home pravastatin #. Obesity Complicating care. BMI 34 #. DVT prophylaxis: prophylactic 0.5mg/kg dose CODE STATUS: Full code Disposition: continues to improve, anticipating discharge home - likely with O2 in 48-72 hours VS,Fishbone, I+O VS, Fishbone, I+O Laboratory Tests 07/24/21 04:47 Vital Signs Date Time Temp Pulse Resp B/P (MAP) Pulse Ox O2 Delivery O2 Flow Rate FiO2 07/24/21 04:00 96.7 60 17 115/80 (92) 93 NIPPV (BIPAP/CPAP) 6.0 07/23/21 20:25 80 I&O- Last 24 Hours up to 6 AM 07/24/21 06:00 Intake Total 2070 ml Output Total 1675 ml Balance 395 ml FARIDEH LINCOLN MD Jul 24, 2021 08:31
[2021-07-24] MEDS: HumaLOG INSULIN (NovoLOG) PER UNIT SC SCH ×4 (08:35→20:50)
[2021-07-24] MEDS: LEVEMIR (INSULIN DETEMIR) 1 UNITS/0.01ML SC SCH ×2 (08:35→20:50)
[2021-07-24] MEDS: BARICITINIB 2MG TABLET (OLUMIANT) FOR EUA PO SCH (08:37)
[2021-07-24] MEDS: ENOXAPARIN 60MG/0.6ML SYRINGE (J1650 PER 10MG) SC SCH ×2 (08:38→20:13)
[2021-07-24] MEDS: dexameTHASONE 20MG/5ML VIAL (J1100 PER 1MG) IV SCH (08:38)
[2021-07-24] MEDS: MAGNESIUM OXIDE 400MG TAB (MAG-OX) PO SCH (08:38)
[2021-07-24] MEDS: guaiFENesin ER 600 MG TAB PO SCH ×2 (08:38→20:14)
[2021-07-24] MEDS: MORPHINE 15 MG SA TAB PO SCH ×2 (08:40→20:14)
[2021-07-24] MEDS: DOXYCYCLINE HYCLATE 100 MG in D5W MINI-BAG PLUS 100 ML IV SCH ×2 (10:45→20:50)
[2021-07-24] MEDS: cefTRIAXone SOD 1 GM in D5W MINI-BAG PLUS 50 ML IV SCH (20:08)
[2021-07-24] MEDS: PRAZOSIN 1 MG CAP PO SCH (20:13)
[2021-07-24] MEDS: PRAVASTATIN 10 MG TAB PO SCH (20:14)
[2021-07-25 04:00] VITALS: BP 126/84
[2021-07-25 05:40] LABS: HEMOGLOBIN 12.6 g/dl (13.5-17.5); MEAN CORPUSCULAR HEMOGLOBIN 26.5 pg (27.0-33.0); MEAN CORPUSCULAR HGB CONC 33.2 g/dl (32.0-36.5); MEAN CORPUSCULAR VOLUME 79.8 fl (80.0-96.0); PLATELET COUNT, AUTOMATED 497 10^3/uL (150-450); RED BLOOD COUNT 4.76 10^6/uL (4.30-6.10); WHITE BLOOD COUNT 8.2 10^3/uL (4.0-10.0)
[2021-07-25 06:17] LABS: ALBUMIN 2.5 GM/DL (3.2-5.2); ALT/SGPT 58 U/L (12-78); BILIRUBIN,TOTAL 0.4 MG/DL (0.2-1.0); BLOOD UREA NITROGEN 21 MG/DL (7-18); CALCIUM LEVEL 8.5 MG/DL (8.5-10.1); CARBON DIOXIDE LEVEL 26 MEQ/L (21-32); CHLORIDE LEVEL 103 MEQ/L (98-107); CREATININE FOR GFR 0.71 MG/DL (0.70-1.30); GLOMERULAR FILTRATION RATE > 60.0 (>60); GLUCOSE, FASTING 208 MG/DL (70-100); POTASSIUM SERUM 3.8 MEQ/L (3.5-5.1); SODIUM LEVEL 134 MEQ/L (136-145); TOTAL PROTEIN 6.7 GM/DL (6.4-8.2)
[2021-07-25 08:00] VITALS: BP 125/82
[2021-07-25] MEDS: BARICITINIB 2MG TABLET (OLUMIANT) FOR EUA PO SCH (08:17)
[2021-07-25] MEDS: guaiFENesin ER 600 MG TAB PO SCH (08:17)
[2021-07-25] MEDS: dexameTHASONE 20MG/5ML VIAL (J1100 PER 1MG) IV SCH (08:18)
[2021-07-25] MEDS: MORPHINE 15 MG SA TAB PO SCH (08:19)
[2021-07-25] MEDS: MAGNESIUM OXIDE 400MG TAB (MAG-OX) PO SCH (08:20)
[2021-07-25] MEDS: HumaLOG INSULIN (NovoLOG) PER UNIT SC SCH ×2 (08:21→12:59)
[2021-07-25] MEDS: ENOXAPARIN 60MG/0.6ML SYRINGE (J1650 PER 10MG) SC SCH (08:22)
[2021-07-25] MEDS: LEVEMIR (INSULIN DETEMIR) 1 UNITS/0.01ML SC SCH (08:22)
[2021-07-25] MEDS ORDERED: INSULANT SC (08:23)
[2021-07-25] MEDS ORDERED: PRED10TA2 PO (08:23)
[2021-07-25] MEDS: DOXYCYCLINE HYCLATE 100 MG in D5W MINI-BAG PLUS 100 ML IV SCH (10:55)
--- NOTE | 2021-07-25 12:46 | DS.PDOC ---
Discharge Summary General Date of Admission Jul 16, 2021 at 19:59 Date of Discharge 07/25/2021 Discharge Summary PROCEDURES PERFORMED DURING STAY: [None]. ADMITTING DIAGNOSES / DISCHARGE DIAGNOSES: Acute hypoxic respiratory failure - likely 2/2 COVID-19 pneumonia s/p Superimposed pneumonia s/p Transaminitis s/p Hyponatremia IDDM2 BERTO on CPAP Hx of chronic back pain PTSD HTN DLP Obesity DVT prophylaxis COMPLICATIONS/CHIEF COMPLAINT: Shortness of breath HISTORY OF PRESENT ILLNESS: Patient is a 41-year-old male with a PMHx of BERTO on CPAP, DM2, DLP, Chronic back pain who presented to the hospital with complaints of short of breath. Upon arrival to emergency room, patient was found to be coded 19 positive and was admitted to the hospitalist service for further evaluation and treatment. Patient was seen and examined at the bedside. Currently, he denies any chest pain, shortness of breath or palpitations. Denies any nausea, vomiting, abdominal pain, diarrhea, or urinary discomfort. Patient has been up ambulating within the room without any significant difficulty and has maintained saturations on 2-3 L of nasal cannula oxygen. HOSPITAL COURSE: Acute hypoxic respiratory failure - likely 2/2 COVID-19 pneumonia - Currently patient has reported improvement in breathing - Saturations have remained stable on 2-3 L of nasal cannula oxygen - COVID19 positive on 07/09; Unvaccinated - Imaging noted below - s/p Remdesivir x 10 days - Will DC Dexamethasone; will start Prednisone taper on discharge - c/w incentive spirometry / acapella / Mucinex - Will have outpatient follow-up with primary care provider within the next 7 days s/p Superimposed pneumonia - Denies any significant productive cough - Remains afebrile - No leukocytosis - Pro-calcitonin has trended down - Will discontinue antibiotic therapy at this time s/p Transaminitis s/p Hyponatremia IDDM2 - c/w Adjusted dose of Levemir on discharge - c/w ISS BERTO on CPAP - c/w CPAP while inpatient Hx of chronic back pain - c/w Ms Contin 15 mg BID based on outpatient regimen PTSD - c/w Prazosin HTN - BP well controlled - s/p Verapamil DLP - c/w Pravastatin Obesity - BMI of 32.6 - Complicating medical care DVT prophylaxis - c/w Lovenox (Weight based prophylaxis) DISCHARGE MEDICATIONS: Please see below. ALLERGIES: Please see below. PHYSICAL EXAMINATION ON DISCHARGE: Vitals (See below) General: Lying in bed, appears comfortable, AAOx3 HEENT: NC, AT CVS: +S1S2 Lungs: Fair air entry b/l, -w/r/r Abdomen: Soft, ND, NT Extremities: No evidence of edema, - Calf tenderness LABORATORY DATA: Please see below. IMAGING: CXR 07/16: Infiltrates compatible with multifocal pneumonia and COVID-19 pulmonary disease. CTA Chest 07/16: 1. No pulmonary embolism. 2. Ground-glass opacities in a predominantly peripheral distribution in both lungs with areas of intralobular septal thickening ("crazy-paving"?) and superimposed consolidation, which are findings in keeping with the patient's history of COVID positive pneumonia. CXR 07/19: Stable right lung infiltrates. Mild increased left lung infiltrates. ACTIVITY: [As tolerated]. DISCHARGE PLAN: Follow-up with primary care provider within the next 7 days Remain compliant with treatment plan and medications Return to the ER if you experience any problems DISPOSITION: Home with services DISCHARGE CONDITION: [Stable]. TIME SPENT ON DISCHARGE: 35 minutes. Vital Signs/I&Os Vital Signs Date Time Temp Pulse Resp B/P (MAP) Pulse Ox O2 Delivery O2 Flow Rate FiO2 07/25/21 08:19 18 Nasal Cannula 3.0 07/25/21 08:00 98.2 71 125/82 (96) 96 07/23/21 20:25 80 I&O- Last 24 Hours up to 6 AM 07/25/21 06:00 Intake Total 2900 ml Output Total 1350 ml Balance 1550 ml Laboratory Data Labs 24H Laboratory Tests 2 07/24/21 17:44: Bedside Glucose (Misc Panel) 383H 07/24/21 20:18: Bedside Glucose (Misc Panel) 320H 07/25/21 04:44: Nucleated Red Blood Cells % (auto) 0.0, Anion Gap 5L, Glomerular Filtration Rate > 60.0, Calcium Level 8.5, Total Bilirubin 0.4, Aspartate Amino Transf (AST/ SGOT) 11, Alanine Aminotransferase (ALT/SGPT) 58, Alkaline Phosphatase 57, Total Protein 6.7, Albumin 2.5L, Albumin/Globulin Ratio 0.6 07/25/21 12:07: Bedside Glucose (Misc Panel) 260H CBC/BMP Laboratory Tests 07/25/21 04:44 FSBS Laboratory Tests Test 07/24/21 17:44 07/24/21 20:18 07/25/21 12:07 Range/Units Bedside Glucose (Misc Panel) 383 320 260 70-105 MG/DL Microbiology Microbiology 07/18/21 Gram Stain - Final, Complete 07/18/21 Sputum Culture - Final, Complete 07/16/21 Blood Culture - Final, Complete NO GROWTH AFTER 5 DAYS Discharge Medications Scheduled Alogliptin Benzoate (Alogliptin) 25 Mg Tablet, 25 MG PO DAILY, (Reported) Ergocalciferol (Vitamin D2) (Vitamin D2) 50,000 Units Cap, 50,000 UNITS PO 1XWK, (Reported) WEDNESDAYS Esomeprazole Magnesium (Esomeprazole Magnesium Dr) 20 Mg Capsule.dr, 20 MG PO BID, (Reported) Insulin Glargine (Lantus) 1 Units/0.01 Ml Susp, 40 UNITS SC BID 1 month supply Magnesium Oxide (Magnesium Oxide) 400 Mg Tablet, 400 MG PO DAILY, (Reported) Melatonin (Melatonin) 3 Mg Tab.rapdis, 3 MG PO QHS, (Reported) Metformin HCl (Metformin HCl ER) 500 Mg Tab.er.24h, 2,000 MG PO QHS, (Reported) Morphine Sulfate (Morphine Sulfate ER) 15 Mg Tablet.er, 15 MG PO BID, (Reported) Pioglitazone HCl (Pioglitazone HCl) 30 Mg Tablet, 30 MG PO DAILY, (Reported) Pravastatin Sodium (Pravastatin Sodium) 20 Mg Tablet, 10 MG PO QHS, (Reported) Prazosin Hcl (Prazosin HCl) 2 Mg Capsule, 4 MG PO QHS, (Reported) Prednisone (Prednisone) 10 Mg Tablet, 10 MG PO TAPER Take 4 tabs daily x 3 days, then 3 tabs daily x 3 days, then 2 tabs daily x 3 days, then 1 tab daily x 3 days and stop Riboflavin (Vitamin B2) (Vitamin B-2) 100 Mg Tablet, 400 MG PO DAILY, (Reported) Verapamil HCl (Verapamil HCl) 40 Mg Tablet, 40 MG PO TID, (Reported) Vilazodone HCl (Viibryd) 40 Mg Tablet, 40 MG PO QHS, (Reported) Scheduled PRN Benzonatate (Benzonatate) 100 Mg Capsule, 100 MG PO Q4H PRN for COUGH, (Reported) Cyclobenzaprine HCl (Cyclobenzaprine HCl) 5 Mg Tablet, 5 MG PO TID PRN for MUSCLE SPASMS, (Reported) Hydrocodone/Acetaminophen (Hydrocodone-Acetamin 5-325 mg) 1 Each Tablet, 1 TAB PO Q4H PRN for PAIN LEVEL 4-7, (Reported) Hydroxyzine HCl (Hydroxyzine HCl) 50 Mg Tablet, 50 MG PO Q6H PRN for ANXIETY, (Reported) Ibuprofen (Ibuprofen) 200 Mg Tablet, 400 MG PO Q8H PRN for PAIN LEVEL 1-5, (Reported) Suvorexant (Belsomra) 5 Mg Tablet, 15 MG PO QHS PRN for SLEEP, (Reported) Allergies Coded Allergies: morphine (Verified Adverse Reaction, Intermediate, vomiting, 05/04/19) ziprasidone (Verified Adverse Reaction, Intermediate, extreme fatigue, 05/04/19) RAVI LEONARD MD Jul 25, 2021 12:46
== END 2021-07-25 16:22 | disposition home or self-care (01) | DRG 177 ==
LOC: M ED 17:19 → EDBD 17:19 → M ED INP 19:59 → M ICU 22:34
PROVIDERS: ADMIT Family Medicine; ATTEND Internal Medicine
PROC: XW033E5 Introduction of Remdesivir Anti-infective into Peripheral Vein, Percutaneous Approach, New Technology Group 5 (ICD-10-PCS; principal; 2021-07-16)
PROC: 3E0333Z Introduction of Anti-inflammatory into Peripheral Vein, Percutaneous Approach (ICD-10-PCS; 2021-07-19)
DX: U07.1 COVID-19 (principal); J96.01 Acute respiratory failure with hypoxia; J12.82 Pneumonia due to coronavirus disease 2019; E87.1 Hypo-osmolality and hyponatremia; E11.9 Type 2 diabetes mellitus without complications; F43.10 Post-traumatic stress disorder, unspecified; R51.9 Headache, unspecified; E78.5 Hyperlipidemia, unspecified; G47.33 Obstructive sleep apnea (adult) (pediatric); E87.6 Hypokalemia; E66.9 Obesity, unspecified; Z68.34 Body mass index [BMI] 34.0-34.9, adult; Z79.4 Long term (current) use of insulin; Z79.899 Other long term (current) drug therapy; Z88.5 Allergy status to narcotic agent; Z88.8 Allergy status to other drugs, medicaments and biological substances; Z90.49 Acquired absence of other specified parts of digestive tract; Z87.820 Personal history of traumatic brain injury

== ENCOUNTER → 2023-07-03 | Outpatient (CLI) | payer OTHER ==
[~2023-07-03] MED LIST changes: +ALOG25TA PO; +AZIT-12; +B-2100TA PO; +BELS1TAB PO; +BENZ-18 PO; -CLON-383 PO; +CLON-442 PO; +CYCL5TAB PO; +ERGO500029 PO; +ESOM20CA25 PO; +HYDR-4571 PO; +HYDR50TA70 PO; +IBUP-1114 PO; +IBUP-1720 PO; +METF-838 PO; +MORP-69 PO; +PIOG1TAB37 PO; +PRAV20TA2 PO; +PRAZ2CAP PO; +PRED10TA2 PO; +VERA40TA PO
== END ==
LOC: M PLAIMG 12:46
PROVIDERS: ATTEND Nurse Practitioner Family
DX: M54.9 Dorsalgia, unspecified (principal); M43.27 Fusion of spine, lumbosacral region